=== PATIENT | female | born 1990 | race Caucasian/White ===

== ENCOUNTER 2020-04-16 10:13 | Outpatient (REF) | payer MEDICAID, SELFPAY | END 2020-04-16 10:14 | disposition home or self-care (01) | LOC: HO.LAB 10:13 | PROVIDERS: Visit Provider Internal Medicine | DX: Z20.822 Contact with and (suspected) exposure to COVID-19 (principal) | CPT/HCPCS: 36415; C9803; U0003 ==

== ENCOUNTER 2020-12-22 14:44 | Outpatient (REF) | payer MEDICAID, SELFPAY ==
[2020-12-23 02:48] LABS: CT PCR NOT DETECTED (Not Detect.); NG PCR NOT DETECTED (Not Detect.)
[2020-12-23 04:30] LABS: Syphilis Screen Nonreactive (Nonreactive)
[2020-12-23 04:37] LABS: HBsAGNum1 0.22 S/CO (0.00-0.99); HIV AB/AG Nonreactive (Nonreactive); HIV Num 1 0.08 S/CO (0.00-0.99); Hepatitis B Surface Antigen Negative (Negative); ~HepC Num1 0.18 S/CO (0.00-0.79); ~Hepatitis C Antibody Nonreactive (Nonreactive)
[2020-12-23 08:47] LABS: BV Int Neg Control Negative (Negative); BV Int Pos Control Positive (Positive)
[2020-12-27 17:06] LABS: HPV mRNA E6/E7 rflx Not Detected (Not Detected)
== END 2020-12-22 14:45 | disposition home or self-care (01) ==
LOC: HO.LAB 14:44
PROVIDERS: Visit Provider Obstetrics & Gynecology
DX: Z01.411 Encounter for gynecological examination (general) (routine) with abnormal findings (principal); Z11.51 Encounter for screening for human papillomavirus (HPV); Z11.3 Encounter for screening for infections with a predominantly sexual mode of transmission; Z11.4 Encounter for screening for human immunodeficiency virus [HIV]; N76.0 Acute vaginitis; B96.89 Other specified bacterial agents as the cause of diseases classified elsewhere
CPT/HCPCS: 36415; 86780; 86803; 87340; 87389; 87480; 87491; 87510; 87591; 87624; 87660; 88142

== ENCOUNTER 2021-03-01 08:19 | Outpatient (REF) | payer MEDICAID, SELFPAY ==
[2021-03-01 11:30] LABS: Syphilis Screen Nonreactive (Nonreactive)
[2021-03-01 11:32] LABS: ~HepC Num1 0.12 S/CO (0.00-0.79); ~Hepatitis C Antibody Nonreactive (Nonreactive)
[2021-03-01 11:35] LABS: HBc Num1 0.08 S/CO (0.00-0.79); HIV AB/AG Nonreactive (Nonreactive); HIV Num 1 0.06 S/CO (0.00-0.99); Hepatitis B Core Antibody Nonreactive (Nonreactive)
[2021-03-02 02:49] LABS: CT PCR NOT DETECTED (Not Detect.); NG PCR NOT DETECTED (Not Detect.)
[2021-03-02 10:15] LABS: BV Int Neg Control Negative (Negative); BV Int Pos Control Positive (Positive)
== END 2021-03-01 08:20 | disposition home or self-care (01) ==
LOC: HO.LAB 08:19
PROVIDERS: PCP Internal Medicine; Visit Provider Advanced Practice Midwife
DX: Z01.84 Encounter for antibody response examination (principal); Z11.4 Encounter for screening for human immunodeficiency virus [HIV]; F43.9 Reaction to severe stress, unspecified; Z20.2 Contact with and (suspected) exposure to infections with a predominantly sexual mode of transmission
CPT/HCPCS: 36415; 86704; 86780; 86803; 87389; 87480; 87491; 87510; 87591; 87660; 99212

== ENCOUNTER 2021-07-24 15:54 | Outpatient (REF) | payer MEDICAID, SELFPAY ==
[2021-07-25 05:11] LABS: ~Hepatitis B Surface Antibody REACTIVE (Nonreactive)
== END 2021-07-24 15:55 | disposition home or self-care (01) ==
LOC: HO.LNP 15:54
PROVIDERS: Visit Provider Internal Medicine
DX: Z02.1 Encounter for pre-employment examination (principal)
CPT/HCPCS: 86706

== ENCOUNTER 2021-12-26 14:43 | Outpatient (REF) | payer MEDICAID, SELFPAY ==
[2021-12-27 05:46] LABS: CT PCR NOT DETECTED (Not Detect.); NG PCR NOT DETECTED (Not Detect.)
[2021-12-27 10:15] LABS: BV Int Neg Control Negative (Negative); BV Int Pos Control Positive (Positive)
[2021-12-28 22:41] LABS: HPV mRNA E6/E7 rflx Not Detected (Not Detected)
== END 2021-12-26 14:44 | disposition home or self-care (01) ==
LOC: HO.LNP 14:43
PROVIDERS: Visit Provider Advanced Practice Midwife
DX: Z01.419 Encounter for gynecological examination (general) (routine) without abnormal findings (principal); Z11.3 Encounter for screening for infections with a predominantly sexual mode of transmission; Z11.51 Encounter for screening for human papillomavirus (HPV)
CPT/HCPCS: 87480; 87491; 87510; 87591; 87624; 87660; 88142

== ENCOUNTER 2022-11-05 15:21 | Outpatient (REF) | payer MEDICAID, SELFPAY ==
[2022-11-05 18:28] LABS: MANUAL DIFF FLAG NO
[2022-11-05 19:08] LABS: Basophils Absolute Auto 0.1 X10*3/uL (0.0-0.2); Basophils Percent Auto 0.8 % (0-2); Eosinophils Absolute Auto 0.2 X10*3/uL (0.0-0.4); Eosinophils Percent Auto 2.3 % (0-4); Hemoglobin 12.6 g/dl (12.0-16.0); Imm Gran Abs Auto 0.02 X10*3/uL (0.00-0.03); Imm Gran Pct Auto 0.3 % (0.0-0.4); Lymphocytes Absolute Auto 1.9 X10*3/uL (1.2-4.9); Mean Corpuscular HGB Conc 34.1 g/dl (31.0-35.0); Mean Corpuscular Hemoglobin 30.3 pg (27.0-33.0); Mean Corpuscular Volume 88.9 fL (80.0-98.0); Mean Platelet Volume 8.8 fL (9.4-12.3); Monocytes Absolute Auto 0.4 X10*3/uL (0.1-1.2); Monocytes Percent Auto 6.2 % (2-11); Neutrophils Absolute Auto 4.1 x10*3/uL (2.0-8.3); Neutrophils Percent Auto 61.4 % (45-73); Platelet Count 459 X10*3/uL (160-400); Red Blood Count 4.16 X10*6/uL (4.20-5.50); Red Cell Distribution Width 12.5 % (11.0-16.0); White Blood Count 6.7 X10*3/uL (4.8-10.8)
[2022-11-05 19:47] LABS: Monotest Negative (Negative)
== END 2022-11-05 15:22 | disposition home or self-care (01) ==
LOC: HO.CHCLDS 15:21
PROVIDERS: Visit Provider Internal Medicine
DX: J02.9 Acute pharyngitis, unspecified (principal)
CPT/HCPCS: 36415; 85025; 86308; 87070

== ENCOUNTER 2022-12-06 14:38 | Outpatient (REF) | payer MEDICAID, SELFPAY ==
[2022-12-06 17:18] LABS: MANUAL DIFF FLAG NO
[2022-12-06 17:20] LABS: Basophils Absolute Auto 0.1 X10*3/uL (0.0-0.2); Basophils Percent Auto 0.8 % (0-2); Eosinophils Absolute Auto 0.2 X10*3/uL (0.0-0.4); Eosinophils Percent Auto 1.9 % (0-4); Hematocrit 36.7 % (37.0-47.0); Hemoglobin 12.1 g/dl (12.0-16.0); Imm Gran Abs Auto 0.02 X10*3/uL (0.00-0.03); Imm Gran Pct Auto 0.2 % (0.0-0.4); Lymphocytes Percent Auto 24.2 % (20-40); Mean Corpuscular Hemoglobin 29.7 pg (27.0-33.0); Monocytes Absolute Auto 0.4 X10*3/uL (0.1-1.2); Monocytes Percent Auto 5.3 % (2-11); Neutrophils Absolute Auto 5.6 x10*3/uL (2.0-8.3); Neutrophils Percent Auto 67.6 % (45-73); Platelet Count 468 X10*3/uL (160-400); Red Blood Count 4.08 X10*6/uL (4.20-5.50); Red Cell Distribution Width 12.9 % (11.0-16.0); White Blood Count 8.3 X10*3/uL (4.8-10.8)
[2022-12-06 17:37] LABS: Alanine Aminotransferase 8 U/L (0-31); Albumin Level 4.1 g/dL (3.5-5.0); Alkaline Phosphatase 85 U/L (39-117); Anion Gap 8 (12-20); Aspartate Amino Transferase 12 U/L (5-31); Bilirubin Direct 0.1 mg/dL (0.0-0.5); Bilirubin Total 0.3 mg/dL (0.0-1.0); Blood Urea Nitrogen 11 mg/dL (9-16); Calcium 9.5 mg/dL (8.4-10.2); Carbon Dioxide 25 mmol/L (22-29); Chloride 110 mmol/L (96-108); Cholesterol 213 mg/dL (<200); Estimated Glomerular Filt Rate > 60; Glucose Random 78 mg/dL (60-115); HDL Cholesterol 54 mg/dL (>40); LDL Cholesterol Calculated 132 mg/dL (<100); Potassium 3.8 mmol/L (3.3-5.1); Sodium 139 mmol/L (135-145); Total Protein 7.2 g/dL (6.5-8.0); Triglycerides 135 mg/dL (<150)
[2022-12-06 17:53] LABS: TSH reflex Free T4 4.21 uIU/mL (0.32-4.0)
[2022-12-06 19:13] LABS: Free T4 (Free Thyroxine) 0.76 ng/dL (0.71-1.85)
[2022-12-07 05:02] LABS: ~HepC Num1 0.11 S/CO (0.00-0.79); ~Hepatitis C Antibody Nonreactive (Nonreactive)
== END 2022-12-06 14:39 | disposition home or self-care (01) ==
LOC: HO.CHCLDS 14:38
PROVIDERS: Visit Provider Internal Medicine
DX: E66.09 Other obesity due to excess calories (principal); Z68.33 Body mass index [BMI] 33.0-33.9, adult; G43.709 Chronic migraine without aura, not intractable, without status migrainosus
CPT/HCPCS: 36415; 80048; 80061; 80076; 84439; 84443; 85025; 86803

== ENCOUNTER 2022-12-19 14:48 | Outpatient (REF) | payer MEDICAID, SELFPAY ==
[2022-12-19 18:34] LABS: CT PCR NOT DETECTED (Not Detect.); NG PCR NOT DETECTED (Not Detect.)
[2022-12-20 14:30] LABS: BV Int Neg Control Negative (Negative); BV Int Pos Control Positive (Positive)
== END 2022-12-19 14:49 | disposition home or self-care (01) ==
LOC: HO.LNP 14:48
PROVIDERS: PCP Internal Medicine; Visit Provider Advanced Practice Midwife
DX: Z01.419 Encounter for gynecological examination (general) (routine) without abnormal findings (principal); Z87.42 Personal history of other diseases of the female genital tract; E66.9 Obesity, unspecified; Z97.5 Presence of (intrauterine) contraceptive device
CPT/HCPCS: 0353U; 87480; 87510; 87660; 99395

== ENCOUNTER 2022-12-19 14:48 | Outpatient (AMB) | payer MEDICAID, SELFPAY ==
[2022-12-19 15:01] VITALS: BP 132/74; BMI 34.2
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
== END 2022-12-19 16:03 | disposition home or self-care (01) ==
LOC: HO.HWSM 14:48
PROVIDERS: PCP Internal Medicine; Visit Provider Advanced Practice Midwife
DX: Z11.3 Encounter for screening for infections with a predominantly sexual mode of transmission (principal); Z12.4 Encounter for screening for malignant neoplasm of cervix; Z87.42 Personal history of other diseases of the female genital tract; Z97.5 Presence of (intrauterine) contraceptive device; Z01.419 Encounter for gynecological examination (general) (routine) without abnormal findings; E66.9 Obesity, unspecified
CPT/HCPCS: 99395

== ENCOUNTER 2024-09-10 11:23 | Outpatient (REF) | payer MEDICAID, SELFPAY ==
--- OUTSIDE RECORDS SUMMARY | 2024-09-10 13:30 | XMS_ITS | Encounter Summary ---
Author Organization [employer] Address [address] [place] [address] Care Team Providers Care Director Money Name Role Phone Gerard Marcelo MD Primary Care Provider Reason for Visit * Reason Onset Date Comments appt 11/04/2023 Encounter Details Date Type Department Care Team ([facility] Contact Info) Description 11/04/2023 Telephone [facility] [address] [place] [address] Carlos Manuel, Hasmukh, DMD [address], [place] [id number] appt Social History Tobacco Use Types Packs/Day Years Used Date Smoking Tobacco: Never Passive Smoke Exposure: Never Smokeless Tobacco: Never Depression Answer Date Recorded Patient Health Questionnaire-9 Score 0 12/06/2022 Depression Answer Date Recorded Patient Health Questionnaire-2 Score 0 12/06/2022 Comments Unknown Sex and Gender Information Value Date Recorded Sex Assigned at Female 01/29/2022 10:16 AM EDT Legal Sex Female 10:16 AM EDT Gender Identity Female 01/29/2022 10:16 AM EDT Sexual Orientation Choose not to disclose 2021 10:16 AM EDT documented as of this encounter Miscellaneous Notes * Telephone Encounter - Rosette Chapman - 11/04/2023 2:22 PM EDT Patient checking status of appt. They were seeing Dr. Tran but are ok with continuing in [facility] provider. Active requested since 05/2023. documented in this encounter Plan of Treatment Upcoming Encounters Date Type Department Care Team ([facility] Contact Info) Description 09/28/2024 8:00 AM EDT Office Visit [facility] ADULT DENTAL [address] [place] [address] Kimberly Montano 11/23/2024 2:15 PM EDT Office Visit [facility] MED [facility] PED[facility] [address] [place] [address] Gerard Marcelo MD [address] [place] [address] documented as of this encounter Visit Diagnoses Not on filedocumented in this encounter Additional Health Concerns Assessment Noted Time PHQ-9 Depression Total Score: 0 12/07/19 23 2:15 PM EDT documented as of this encounter Care Teams Director Money Relationship Specialty Start Date End Date Gerard Marcelo MD [address] [place] [address] PCP - General Internal Medicine 04/30/13 documented as of this encounter
[2024-09-10 14:12] LABS: MANUAL DIFF FLAG NO
[2024-09-10 14:16] LABS: Basophils Absolute Auto 0.1 X10*3/uL (0.0-0.2); Basophils Percent Auto 0.7 % (0-2); Eosinophils Absolute Auto 0.2 X10*3/uL (0.0-0.4); Eosinophils Percent Auto 2.9 % (0-4); Hematocrit 35.6 % (37.0-47.0); Hemoglobin 12.2 g/dl (12.0-16.0); Imm Gran Abs Auto 0.02 X10*3/uL (0.00-0.03); Imm Gran Pct Auto 0.3 % (0.0-0.4); Lymphocytes Absolute Auto 1.8 X10*3/uL (1.2-4.9); Lymphocytes Percent Auto 23.5 % (20-40); Mean Corpuscular HGB Conc 34.3 g/dl (31.0-35.0); Mean Corpuscular Hemoglobin 30.7 pg (27.0-33.0); Mean Corpuscular Volume 89.4 fL (80.0-98.0); Mean Platelet Volume 8.9 fL (9.4-12.3); Monocytes Absolute Auto 0.5 X10*3/uL (0.1-1.2); Monocytes Percent Auto 6.9 % (2-11); Neutrophils Percent Auto 65.7 % (45-73); Platelet Count 428 X10*3/uL (160-400); Red Blood Count 3.98 X10*6/uL (4.20-5.50); Red Cell Distribution Width 12.7 % (11.0-16.0); White Blood Count 7.6 X10*3/uL (4.8-10.8)
[2024-09-10 14:36] LABS: Alanine Aminotransferase 28 U/L (0-31); Albumin Level 4.1 g/dL (3.5-5.0); Alkaline Phosphatase 84 U/L (39-117); Anion Gap 9 (12-20); Aspartate Amino Transferase 33 U/L (5-31); Bilirubin Total 0.4 mg/dL (0.0-1.0); Blood Urea Nitrogen 9 mg/dL (9-16); Calcium 9.1 mg/dL (8.4-10.2); Carbon Dioxide 25 mmol/L (22-29); Chloride 109 mmol/L (96-108); Cholesterol 226 mg/dL (<200); Estimated Glomerular Filt Rate > 60; Glucose Random 92 mg/dL (60-115); HDL Cholesterol 55 mg/dL (>40); LDL Cholesterol Calculated 139 mg/dL (<100); Potassium 4.2 mmol/L (3.3-5.1); Sodium 139 mmol/L (135-145); Total Protein 7.1 g/dL (6.5-8.0); Triglycerides 160 mg/dL (<150)
[2024-09-10 14:54] LABS: TSH reflex Free T4 8.91 uIU/mL (0.32-4.0)
[2024-09-10 15:29] LABS: Free T4 (Free Thyroxine) 0.75 ng/dL (0.71-1.85)
== END 2024-09-10 11:24 | disposition home or self-care (01) ==
LOC: HO.CHCLDS 11:23
PROVIDERS: Visit Provider Internal Medicine
DX: Z00.00 Encounter for general adult medical examination without abnormal findings (principal)
CPT/HCPCS: 36415; 80053; 80061; 84439; 84443; 85025

== ENCOUNTER 2024-11-23 16:01 | Outpatient (REF) | payer MEDICAID, SELFPAY ==
--- OUTSIDE RECORDS SUMMARY | 2024-11-23 14:15 | XMS_ITS | Encounter Summary ---
Author Organization [employer] Address [address] [place] [address] Care Team Providers Care Cad Design Engineer Name Role Phone Gerard Marcelo MD Primary Care Provider Encounter Details Date Type Department Care Team (Latest Contact Info) Description 11/23/2024 2:15 PM EDT Office Visit [facility] [address], [place] [phone] Gerard Marcelo MD [address] [place], [place] [phone] Hypercholesterolemia (Primary Dx); Class 1 obesity due to excess calories without serious comorbidity with body mass index (BMI) of 33.0 to 33.9 in adult; Current severe episode of major depressive disorder without psychotic features without prior episode (CMS/HCC); Elevated blood pressure reading Social History Tobacco Use Types Packs/Day Years Used Date Smoking Tobacco: Never Passive Smoke Exposure: Never Smokeless Tobacco: Never Alcohol Use Standard Drinks/Week Comments Defer 0 (1 standard drink = 0.6 oz pur e alcohol) Depression Answer Date Recorded Patient Health Questionnaire-9 Score 7 09/10/2024 Patient Health Questionnaire-9 Score 7 09/10/2024 Last PHQ-9: Questionnaire Data Not on file 0 09/10/2024 Housing Stability Answer Date Recorded What is your housing situation today? I have dylan bhandari 05/27/[address] you li ve. Do you have problems with any of the following? None of the above 05/27/2024 Food Insecurity Answer Date Recorded Within the past 12 months, y ou worried that your food would run out before you got money to buy more: Never True 05/27/2024 Within the past 12 months,th e food you bought just didn't last and you didn't have enough money to get more: Never True Transportation Answer Date Recorded In the past 12 months, has l ack of transportation kept you from medical appts, meetings, work or from getting things needed for daily living? No 05/27/2024 Utilities Answer Date Recorded In the past 12 months, has t he electric, gas, oil or water company threatened to shut off services in your home? No 09/01/2024 Depression Answer Date Recorded Patient Health Questionnaire-2 Score 3 09/10/2024 Internet Access Answer Date Recorded Internet Access Q1 Yes 09/01/2024 Internet Access Q2 Not on file 09/01/2024 Comments Unknown Sex and Gender Information Value Date Recorded Sex Assigned at Female 01/29/2022 10:16 AM EDT Legal Sex Female 10:16 AM EDT Gender Identity Female 01/29/2022 10:16 AM EDT Sexual Orientation Choose not to disclose 2021 10:16 AM EDT documented as of this encounter Last Filed Vital Signs Vital Sign Reading Time Taken Comments Blood Pressure 146/96 11/23/2024 2:46 PM EDT Pulse 96 11/23/2024 2:46 PM EDT Temperature 36.8 C (98.3 F) 11/23/2024 2:46 PM EDT Respiratory Rate 20 11/23/2024 2:46 PM EDT Oxygen Saturation 98% 11/23/2024 2:46 PM EDT Inhaled Oxygen Concentration - - Weight 87.1 kg (192 lb) 11/23/2024 2:46 PM EDT Height 165.1 cm (5' 5 ) 11/23/2024 2:46 PM EDT Body Mass Index 31.95 11/23/2024 2:46 PM EDT documented in this encounter Progress Notes * Gerard Marcelo MD - 11/23/2024 2:15 PM EDT BLANCA Redd is a 33 y.o. female who presents for No chief complaint on file.. HPI History of obesity. Started on phentermine topiramate on September 10, 2024. Initial weight was 203 pound. Today patient's weight is 192 pound which represents 11 pound weight loss in the last 3 months. Otherwise pt feels well. Denies any untoward side effect from the medication. Mrs. Amelia Redd is here also to discuss the results of her most recent blood work. Problem List[1] Allergies[2] Medications Ordered Prior to Encounter[3] Review of Systems Constitutional: Negative for activity change, appetite change, chills and diaphoresis. HENT: Negative for dental problem, drooling, ear discharge, ear pain and hearing loss. Eyes: Negative for pain, discharge and itching. Respiratory: Negative for cough, choking and chest tightness. Cardiovascular: Negative for chest pain and leg swelling. Gastrointestinal: Negative for blood in stool and diarrhea. Genitourinary: Negative for difficulty urinating, dyspareunia, dysuria, enuresis, flank pain, frequency and genital sores. Musculoskeletal: Negative for arthralgias, gait problem and joint swelling. Skin: Negative for pallor. Neurological: Negative for dizziness, seizures, speech difficulty, light- headedness and numbness. Psychiatric/Behavioral: Negative for behavioral problems, confusion and decreased concentration. OBJECTIVE Vitals: 11/23/24 1446 BP: (!) 146/96 Pulse: 96 Resp: 20 Temp: 98.3 ??F (36.8 ??C) TempSrc: Oral SpO2: 98% Weight: 192 lb (87.1 kg) Height: 5' 5 (1.651 m) Physical Exam Constitutional: General: She is not in acute distress. Appearance: Normal appearance. She is not ill-appearing, toxic-appearing or diaphoretic. Cardiovascular: Rate and Rhythm: Normal rate. Abdominal: General: There is no distension. Palpations: Abdomen is soft. There is no mass. Tenderness: There is no abdominal tenderness. Hernia: No hernia is present. Musculoskeletal: General: Normal range of motion. Neurological: General: No focal deficit present. Mental Status: She is alert. Psychiatric: Mood and Affect: Mood normal. Assessment/Plan Assessment/Plan Diagnoses and all orders for this visit: Hypercholesterolemia Comments: Low-cholesterol diet A handout was provided. Class 1 obesity due to excess calories without serious comorbidity with body mass index (BMI) of 33.0 to 33.9 in adult Dietary Recommendations: Fruits, vegetables, whole grains, protein foods, and fat-free or low-fat dairy products are healthychoices. Eat different types of protein foods in your diet. This can include seafood, lean meats, poultry, beans, peas, lentils, nuts, seeds, soy products, and eggs. Limit foods and beverages higher in added sugars, saturated fat, and sodium. Exercise Recommendations: At least 150 minutes of moderate-intensity physical activity per week, or an equivalent combinationof moderate- and vigorous-intensity activity Current severe episode of major depressive disorder without psychotic features without prior episode (CMS/HCC) Comments: Has missed 2 appointment with behavioral because of scheduling issues. Advised to call to reschedule. Elevated blood pressure reading Comments: DASH diet Dose of phentermine will be decreased to 8 mg once a day. Mrs. Amelia Redd will contact the office in 4 days to report her blood pressure readings from home. Labs reviewed. Patient has elevated TSH. A workup was already ordered to confirm her level and antibodies also ordered. She is going to do them today. Also noted to have mild elevation of her AST. Will repeat lipid panel was also ordered to be done today. [1] Patient Active Problem List Diagnosis Migraine Obesity Current severe episode of major depressive disorder without psychotic features without prior episode (CMS/HCC) JUAN C (generalized anxiety disorder) [2] Allergies Allergen Reactions Amoxicillin Rash [3] Current Outpatient Medications on File Prior to Visit Medication Sig Dispense Refill juhpcqm-pfhfhbmnuggon-zprwrhrh (Excedrin Migraine) 250-250-65 MG tablet Take 1 tablet by mouth every 6 (six) hours if needed for headaches. methocarbamol (Robaxin) 750 MG tablet Take 1 tablet (750 mg) by mouth 4 times daily for 10 days. 40tablet 0 phentermine 15 MG capsule TAKE ONE CAPSULE EVERY MORNING BEFORE BREAKFAST 30 capsule 0 propranolol XL (Innopran XL) 80 MG 24 hr capsule Take 1 capsule by mouth at bed time. (Patient not taking: Reported on 05/19/2024) Sodium Fluoride 1.1 % cream [place] teeth for 2 minutes, morning and night. Spit, do not rinse. Do not eat or drink anything for 30 minutes following use. 112 g 3 SUMAtriptan (Imitrex) 100 MG tablet Take 1 tablet by mouth. (Patient not taking: Reported on 05/19/2024) topiramate (Topamax) 25 MG tablet Take 1 tablet (25 mg) by mouth every 12 (twelve) hours. 60 [id number] triamcinolone (Kenalog) 0.1 % ointment Apply topically 2 times daily. 15 g 0 No current facility-administered medications on file prior to visit. documented in this encounter Miscellaneous Notes * Patient Education Note - Gerard Marcelo MD - 11/23/2024 7:07 PM EDT Images from the original note were not included. Patient Education Table of Contents High Cholesterol Dyslipidemia To view videos and all your education online visit, [email or web address] or scan this QR code with your smartphone. Access to this content will in one year. High Cholesterol High cholesterol is a condition in which the blood has high levels of a white, waxy substance similar to fat (cholesterol). The liver makes all the cholesterol that the body needs. The human body needs small amounts of cholesterol to help build cells. A person gets extra or excess cholesterol from the food that he or she eats. The blood carries cholesterol from the liver to the rest of the body. If you have high cholesterol,deposits (plaques) may build up on the christensen of your arteries. Arteries are the blood vessels that carry blood away from your heart. These plaques make the arteries narrow and stiff. Cholesterol plaques increase your risk for heart attack and stroke. Work with your health care provider to keep your cholesterol levels in a healthy range. What increases the risk? The following factors may make you more likely to develop this condition: Eating foods that are high in animal fat (saturated fat) or cholesterol. Being overweight. Not getting enough exercise. A family history of high cholesterol (familial hypercholesterolemia). Use of tobacco products. Having diabetes. What are the signs or symptoms? In most cases, high cholesterol does not usually cause any symptoms. In severe cases, very high cholesterol levels can cause: Fatty bumps under the skin (xanthomas). A white or gordon ring around the black center (pupil) of the eye. How is this diagnosed? This condition may be diagnosed based on the results of a blood test. If you are older than 20 years of age, your health care provider may check your cholesterol levels every 4?6 years. You may be checked more often if you have high cholesterol or other risk factors for heart disease. The blood test for cholesterol measures: Bad cholesterol, or LDL cholesterol. This is the main type of cholesterol that causes heart disease. The desired level is less than 100 mg/dL (2.59 mmol/L). Good cholesterol, or HDL cholesterol. HDL helps protect against heart disease by cleaning the arteries and carrying the LDL to the liver for processing. The desired level for HDL is 60 mg/dL (1.55 mmol/L) or higher. Triglycerides. These are fats that your body can store or burn for energy. The desired level is less than 150 mg/dL (1.69 mmol/L). Total cholesterol. This measures the total amount of cholesterol in your blood and includes LDL, HDL, and triglycerides. The desired level is less than 200 mg/dL (5.17 mmol/L). How is this treated? Treatment for high cholesterol starts with lifestyle changes, such as diet and exercise. Diet changes. You may be asked to eat foods that have more fiber and less saturated fats or added sugar. Lifestyle changes. These may include regular exercise, maintaining a healthy weight, and quitting use of tobacco products. Medicines. These are given when diet and lifestyle changes have not worked. You may be prescribed astatin medicine to help lower your cholesterol levels. Follow these instructions at home: Eating and drinking Eat a healthy, balanced diet. This diet includes: ? Daily servings of a variety of fresh, frozen, or canned fruits and vegetables. ? Daily servings of whole grain foods that are rich in fiber. ? Foods that are low in saturated fats and trans fats. These include poultry and fish without skin,lean cuts of meat, and low-fat dairy products. ? A variety of fish, especially oily fish that contain omega-3 fatty acids. Aim to eat fish at least 2 times a week. Avoid foods and drinks that have added sugar. Use healthy cooking methods, such as roasting, grilling, broiling, baking, poaching, steaming, and stir-frying. Do not baez your food except for stir-frying. If you drink alcohol: ? Limit how much you have to: ? 0?1 drink a day for women who are not . ? 0?2 drinks a day for men. ? Know how much alcohol is in a drink. In the [place] one drink equals one 12 oz bottle of beer (355 mL), one 5 oz glass of wine (148 mL), or one 1? oz glass of hard liquor (44 mL). Lifestyle Get regular exercise. Aim to exercise for a total of 150 minutes a week. Increase your activity level by doing activities such as gardening, walking, and taking the stairs. Do not use any products that contain nicotine or tobacco. These products include cigarettes, chewing tobacco, and vaping devices, such as e-cigarettes. If you need help quitting, ask your health careprovider. General instructions Take qiec-pso-fravemy and prescription medicines only as told by your health care provider. Keep all follow-up visits. This is important. Where to find more information [place] [employer]: www.heart.org National Heart, Lung, and Blood [place]: www.nhlbi.nih.gov Contact a health care provider if: You have trouble achieving or maintaining a healthy diet or weight. You are starting an exercise program. You are unable to stop smoking. Get help right away if: You have chest pain. You have trouble breathing. You have discomfort or pain in your jaw, neck, back, shoulder, or arm. You have any symptoms of a stroke. BE FAST is an easy way to remember the main warning signs of astroke: ? B - Balance. Signs are dizziness, sudden trouble walking, or loss of balance. ? E - Eyes. Signs are trouble seeing or a sudden change in vision. ? F - Face. Signs are sudden weakness or numbness of the face, or the face or eyelid drooping on one side. ? A - Arms. Signs are weakness or numbness in an arm. This happens suddenly and usually on one sideof the body. ? S - Speech. Signs are sudden trouble speaking, slurred speech, or trouble understanding what people say. ? T - Time. Time to call emergency services. Write down what time symptoms started. You have other signs of a stroke, such as: ? A sudden, severe headache with no known cause. ? Nausea or vomiting. ? Seizure. These symptoms may represent a serious problem that is an emergency. Do not wait to see if the symptoms will go away. Get medical help right away. Call your local emergency services (911 in the [place] Do not drive yourself to the hospital. Summary Cholesterol plaques increase your risk for heart attack and stroke. Work with your health care provider to keep your cholesterol levels in a healthy range. Eat a healthy, balanced diet, get regular exercise, and maintain a healthy weight. Do not use any products that contain nicotine or tobacco. These products include cigarettes, chewing tobacco, and vaping devices, such as e-cigarettes. Get help right away if you have any symptoms of a stroke. This information is not intended to replace advice given to you by your health care provider. Make sure you discuss any questions you have with your health care provider. Document Released: 2006-03-18 Document Updated: 2022-10-19 Document Reviewed: 2021-05-22 [employer] Patient Education ? 2024 [employer] Dyslipidemia Dyslipidemia is an imbalance of waxy, fat-like substances (lipids) in the blood. The body needs lipids in small amounts. Dyslipidemia often involves a high level of cholesterol or triglycerides, which are types of lipids. Common forms of dyslipidemia include: High levels of LDL cholesterol. LDL is the type of cholesterol that causes fatty deposits (plaques)to build up in the blood vessels that carry blood away from the heart (arteries). Low levels of HDL cholesterol. HDL cholesterol is the type of cholesterol that protects against heart disease. High levels of HDL remove the LDL buildup from arteries. High levels of triglycerides. Triglycerides are a fatty substance in the blood that is linked to a buildup of plaques in the arteries. What are the causes? There are two main types of dyslipidemia: primary and secondary. Primary dyslipidemia is caused by changes (mutations) in genes that are passed down through families (inherited). These mutations cause several types of dyslipidemia. Secondary dyslipidemia may be caused by various risk factors that can lead to the disease, such as lifestyle choices and certain medical conditions. What increases the risk? You are more likely to develop this condition if you are an older man or if you are a woman who hasgone through menopause. Other risk factors include: Having a family history of dyslipidemia. Taking certain medicines, including control pills, steroids, some diuretics, and beta-blockers. Eating a diet high in saturated fat. Smoking cigarettes or excessive alcohol intake. Having certain medical conditions such as diabetes, polycystic ovary syndrome (PCOS), kidney disease, liver disease, or hypothyroidism. Not exercising regularly. Being overweight or obese with too much belly fat. What are the signs or symptoms? In most cases, dyslipidemia does not usually cause any symptoms. In severe cases, very high lipid levels can cause: Fatty bumps under the skin (xanthomas). A white or gordon ring around the black center (pupil) of the eye. Very high triglyceride levels can cause inflammation of the pancreas (pancreatitis). How is this diagnosed? Your health care provider may diagnose dyslipidemia based on a routine blood test (fasting blood test). Because most people do not have symptoms of the condition, this blood testing (lipid profile) is done on adults age 20 and older and is repeated every 4-6 years. This test checks: Total cholesterol. This measures the total amount of cholesterol in your blood, including LDL cholesterol, HDL cholesterol, and triglycerides. A healthy number is below 200 mg/dL (5.17 mmol/L). LDL cholesterol. The target number for LDL cholesterol is different for each person, depending on individual risk factors. A healthy number is usually below 100 mg/dL (2.59 mmol/L). Ask your health care provider what your LDL cholesterol should be. HDL cholesterol. An HDL level of 60 mg/dL (1.55 mmol/L) or higher is best because it helps to protect against heart disease. A number below 40 mg/dL (1.03 mmol/L) for men or below 50 mg/dL (1.29 mmol/L) for women increases the risk for heart disease. Triglycerides. A healthy triglyceride number is below 150 mg/dL (1.69 mmol/L). If your lipid profile is abnormal, your health care provider may do other blood tests. How is this treated? Treatment depends on the type of dyslipidemia that you have and your other risk factors for heart disease and stroke. Your health care provider will have a target range for your lipid levels based onthis information. Treatment for dyslipidemia starts with lifestyle changes, such as diet and exercise. Your health care provider may recommend that you: Get regular exercise. Make changes to your diet. Quit smoking if you smoke. Limit your alcohol intake. If diet changes and exercise do not help you reach your goals, your health care provider may also prescribe medicine to lower lipids. The most commonly prescribed type of medicine lowers your LDL cholesterol (statin drug). If you have a high triglyceride level, your provider may prescribe another type of drug (fibrate) or an omega-3 fish oil supplement, or both. Follow these instructions at home: Eating and drinking Follow instructions from your health care provider or dietitian about eating or drinking restrictions. Eat a healthy diet as told by your health care provider. This can help you reach and maintain a healthy weight, lower your LDL cholesterol, and raise your HDL cholesterol. This may include: ? Limiting your calories, if you are overweight. ? Eating more fruits, vegetables, whole grains, fish, and lean meats. ? Limiting saturated fat, trans fat, and cholesterol. Do not drink alcohol if: ? Your health care provider tells you not to drink. ? You are , may be , or are planning to become . If you drink alcohol: ? Limit how much you have to: ? 0?1 drink a day for women. ? 0?2 drinks a day for men. ? Know how much alcohol is in your drink. In the [place] one drink equals one 12 oz bottle of beer (355 mL), one 5 oz glass of wine (148 mL), or one 1? oz glass of hard liquor (44 mL). Activity Get regular exercise. Start an exercise and strength training program as told by your health care provider. Ask your health care provider what activities are safe for you. Your health care provider may recommend: ? 30 minutes of aerobic activity 4?6 days a week. Brisk walking is an example of aerobic activity. ? Strength training 2 days a week. General instructions Do not use any products that contain nicotine or tobacco. These products include cigarettes, chewing tobacco, and vaping devices, such as e-cigarettes. If you need help quitting, ask your health careprovider. Take mzyg-lal-hpnncfg and prescription medicines only as told by your health care provider. This includes supplements. Keep all follow-up visits. This is important. Contact a health care provider if: You are having trouble sticking to your exercise or diet plan. You are struggling to quit smoking or to control your use of alcohol. Summary Dyslipidemia often involves a high level of cholesterol or triglycerides, which are types of lipids. Treatment depends on the type of dyslipidemia that you have and your other risk factors for heart disease and stroke. Treatment for dyslipidemia starts with lifestyle changes, such as diet and exercise. Your health care provider may prescribe medicine to lower lipids. This information is not intended to replace advice given to you by your health care provider. Make sure you discuss any questions you have with your health care provider. Document Released: 2014-03-23 Document Updated: 2022-10-19 Document Reviewed: 2021-05-22 [employer] Patient Education ? 2024 [employer]. * Patient Education Note - Gerard Marcelo MD - 11/23/2024 7:07 PM EDT Images from the original note were not included. Patient Education Table of Contents High Cholesterol To view videos and all your education online visit, [email or web address] or scan this QR code with your smartphone. Access to this content will in one year. High Cholesterol High cholesterol is a condition in which the blood has high levels of a white, waxy substance similar to fat (cholesterol). The liver makes all the cholesterol that the body needs. The human body needs small amounts of cholesterol to help build cells. A person gets extra or excess cholesterol from the food that he or she eats. The blood carries cholesterol from the liver to the rest of the body. If you have high cholesterol,deposits (plaques) may build up on the christensen of your arteries. Arteries are the blood vessels that carry blood away from your heart. These plaques make the arteries narrow and stiff. Cholesterol plaques increase your risk for heart attack and stroke. Work with your health care provider to keep your cholesterol levels in a healthy range. What increases the risk? The following factors may make you more likely to develop this condition: Eating foods that are high in animal fat (saturated fat) or cholesterol. Being overweight. Not getting enough exercise. A family history of high cholesterol (familial hypercholesterolemia). Use of tobacco products. Having diabetes. What are the signs or symptoms? In most cases, high cholesterol does not usually cause any symptoms. In severe cases, very high cholesterol levels can cause: Fatty bumps under the skin (xanthomas). A white or gordon ring around the black center (pupil) of the eye. How is this diagnosed? This condition may be diagnosed based on the results of a blood test. If you are older than 20 years of age, your health care provider may check your cholesterol levels every 4?6 years. You may be checked more often if you have high cholesterol or other risk factors for heart disease. The blood test for cholesterol measures: Bad cholesterol, or LDL cholesterol. This is the main type of cholesterol that causes heart disease. The desired level is less than 100 mg/dL (2.59 mmol/L). Good cholesterol, or HDL cholesterol. HDL helps protect against heart disease by cleaning the arteries and carrying the LDL to the liver for processing. The desired level for HDL is 60 mg/dL (1.55 mmol/L) or higher. Triglycerides. These are fats that your body can store or burn for energy. The desired level is less than 150 mg/dL (1.69 mmol/L). Total cholesterol. This measures the total amount of cholesterol in your blood and includes LDL, HDL, and triglycerides. The desired level is less than 200 mg/dL (5.17 mmol/L). How is this treated? Treatment for high cholesterol starts with lifestyle changes, such as diet and exercise. Diet changes. You may be asked to eat foods that have more fiber and less saturated fats or added sugar. Lifestyle changes. These may include regular exercise, maintaining a healthy weight, and quitting use of tobacco products. Medicines. These are given when diet and lifestyle changes have not worked. You may be prescribed astatin medicine to help lower your cholesterol levels. Follow these instructions at home: Eating and drinking Eat a healthy, balanced diet. This diet includes: ? Daily servings of a variety of fresh, frozen, or canned fruits and vegetables. ? Daily servings of whole grain foods that are rich in fiber. ? Foods that are low in saturated fats and trans fats. These include poultry and fish without skin,lean cuts of meat, and low-fat dairy products. ? A variety of fish, especially oily fish that contain omega-3 fatty acids. Aim to eat fish at least 2 times a week. Avoid foods and drinks that have added sugar. Use healthy cooking methods, such as roasting, grilling, broiling, baking, poaching, steaming, and stir-frying. Do not baez your food except for stir-frying. If you drink alcohol: ? Limit how much you have to: ? 0?1 drink a day for women who are not . ? 0?2 drinks a day for men. ? Know how much alcohol is in a drink. In the [place] one drink equals one 12 oz bottle of beer (355 mL), one 5 oz glass of wine (148 mL), or one 1? oz glass of hard liquor (44 mL). Lifestyle Get regular exercise. Aim to exercise for a total of 150 minutes a week. Increase your activity level by doing activities such as gardening, walking, and taking the stairs. Do not use any products that contain nicotine or tobacco. These products include cigarettes, chewing tobacco, and vaping devices, such as e-cigarettes. If you need help quitting, ask your health careprovider. General instructions Take puxv-rxe-bleqdvw and prescription medicines only as told by your health care provider. Keep all follow-up visits. This is important. Where to find more information [place] [employer]: www.heart.org National Heart, Lung, and Blood [place]: www.nhlbi.nih.gov Contact a health care provider if: You have trouble achieving or maintaining a healthy diet or weight. You are starting an exercise program. You are unable to stop smoking. Get help right away if: You have chest pain. You have trouble breathing. You have discomfort or pain in your jaw, neck, back, shoulder, or arm. You have any symptoms of a stroke. BE FAST is an easy way to remember the main warning signs of astroke: ? B - Balance. Signs are dizziness, sudden trouble walking, or loss of balance. ? E - Eyes. Signs are trouble seeing or a sudden change in vision. ? F - Face. Signs are sudden weakness or numbness of the face, or the face or eyelid drooping on one side. ? A - Arms. Signs are weakness or numbness in an arm. This happens suddenly and usually on one sideof the body. ? S - Speech. Signs are sudden trouble speaking, slurred speech, or trouble understanding what people say. ? T - Time. Time to call emergency services. Write down what time symptoms started. You have other signs of a stroke, such as: ? A sudden, severe headache with no known cause. ? Nausea or vomiting. ? Seizure. These symptoms may represent a serious problem that is an emergency. Do not wait to see if the symptoms will go away. Get medical help right away. Call your local emergency services (911 in the [place] Do not drive yourself to the hospital. Summary Cholesterol plaques increase your risk for heart attack and stroke. Work with your health care provider to keep your cholesterol levels in a healthy range. Eat a healthy, balanced diet, get regular exercise, and maintain a healthy weight. Do not use any products that contain nicotine or tobacco. These products include cigarettes, chewing tobacco, and vaping devices, such as e-cigarettes. Get help right away if you have any symptoms of a stroke. This information is not intended to replace advice given to you by your health care provider. Make sure you discuss any questions you have with your health care provider. Document Released: 2006-03-18 Document Updated: 2022-10-19 Document Reviewed: 2021-05-22 [employer] Patient Education ? 2024 [employer]. * Patient Education Note - Gerard Marcelo MD - 11/23/2024 7:06 PM EDT Images from the original note were not included. Patient Education Table of Contents High Cholesterol Dyslipidemia To view videos and all your education online visit, [email or web address] or scan this QR code with your smartphone. Access to this content will in one year. High Cholesterol High cholesterol is a condition in which the blood has high levels of a white, waxy substance similar to fat (cholesterol). The liver makes all the cholesterol that the body needs. The human body needs small amounts of cholesterol to help build cells. A person gets extra or excess cholesterol from the food that he or she eats. The blood carries cholesterol from the liver to the rest of the body. If you have high cholesterol,deposits (plaques) may build up on the christensen of your arteries. Arteries are the blood vessels that carry blood away from your heart. These plaques make the arteries narrow and stiff. Cholesterol plaques increase your risk for heart attack and stroke. Work with your health care provider to keep your cholesterol levels in a healthy range. What increases the risk? The following factors may make you more likely to develop this condition: Eating foods that are high in animal fat (saturated fat) or cholesterol. Being overweight. Not getting enough exercise. A family history of high cholesterol (familial hypercholesterolemia). Use of tobacco products. Having diabetes. What are the signs or symptoms? In most cases, high cholesterol does not usually cause any symptoms. In severe cases, very high cholesterol levels can cause: Fatty bumps under the skin (xanthomas). A white or gordon ring around the black center (pupil) of the eye. How is this diagnosed? This condition may be diagnosed based on the results of a blood test. If you are older than 20 years of age, your health care provider may check your cholesterol levels every 4?6 years. You may be checked more often if you have high cholesterol or other risk factors for heart disease. The blood test for cholesterol measures: Bad cholesterol, or LDL cholesterol. This is the main type of cholesterol that causes heart disease. The desired level is less than 100 mg/dL (2.59 mmol/L). Good cholesterol, or HDL cholesterol. HDL helps protect against heart disease by cleaning the arteries and carrying the LDL to the liver for processing. The desired level for HDL is 60 mg/dL (1.55 mmol/L) or higher. Triglycerides. These are fats that your body can store or burn for energy. The desired level is less than 150 mg/dL (1.69 mmol/L). Total cholesterol. This measures the total amount of cholesterol in your blood and includes LDL, HDL, and triglycerides. The desired level is less than 200 mg/dL (5.17 mmol/L). How is this treated? Treatment for high cholesterol starts with lifestyle changes, such as diet and exercise. Diet changes. You may be asked to eat foods that have more fiber and less saturated fats or added sugar. Lifestyle changes. These may include regular exercise, maintaining a healthy weight, and quitting use of tobacco products. Medicines. These are given when diet and lifestyle changes have not worked. You may be prescribed astatin medicine to help lower your cholesterol levels. Follow these instructions at home: Eating and drinking Eat a healthy, balanced diet. This diet includes: ? Daily servings of a variety of fresh, frozen, or canned fruits and vegetables. ? Daily servings of whole grain foods that are rich in fiber. ? Foods that are low in saturated fats and trans fats. These include poultry and fish without skin,lean cuts of meat, and low-fat dairy products. ? A variety of fish, especially oily fish that contain omega-3 fatty acids. Aim to eat fish at least 2 times a week. Avoid foods and drinks that have added sugar. Use healthy cooking methods, such as roasting, grilling, broiling, baking, poaching, steaming, and stir-frying. Do not baez your food except for stir-frying. If you drink alcohol: ? Limit how much you have to: ? 0?1 drink a day for women who are not . ? 0?2 drinks a day for men. ? Know how much alcohol is in a drink. In the [place] one drink equals one 12 oz bottle of beer (355 mL), one 5 oz glass of wine (148 mL), or one 1? oz glass of hard liquor (44 mL). Lifestyle Get regular exercise. Aim to exercise for a total of 150 minutes a week. Increase your activity level by doing activities such as gardening, walking, and taking the stairs. Do not use any products that contain nicotine or tobacco. These products include cigarettes, chewing tobacco, and vaping devices, such as e-cigarettes. If you need help quitting, ask your health careprovider. General instructions Take hvxz-nep-drakveu and prescription medicines only as told by your health care provider. Keep all follow-up visits. This is important. Where to find more information [place] [employer]: www.heart.org National Heart, Lung, and Blood [place]: www.nhlbi.nih.gov Contact a health care provider if: You have trouble achieving or maintaining a healthy diet or weight. You are starting an exercise program. You are unable to stop smoking. Get help right away if: You have chest pain. You have trouble breathing. You have discomfort or pain in your jaw, neck, back, shoulder, or arm. You have any symptoms of a stroke. BE FAST is an easy way to remember the main warning signs of astroke: ? B - Balance. Signs are dizziness, sudden trouble walking, or loss of balance. ? E - Eyes. Signs are trouble seeing or a sudden change in vision. ? F - Face. Signs are sudden weakness or numbness of the face, or the face or eyelid drooping on one side. ? A - Arms. Signs are weakness or numbness in an arm. This happens suddenly and usually on one sideof the body. ? S - Speech. Signs are sudden trouble speaking, slurred speech, or trouble understanding what people say. ? T - Time. Time to call emergency services. Write down what time symptoms started. You have other signs of a stroke, such as: ? A sudden, severe headache with no known cause. ? Nausea or vomiting. ? Seizure. These symptoms may represent a serious problem that is an emergency. Do not wait to see if the symptoms will go away. Get medical help right away. Call your local emergency services (911 in the [place] Do not drive yourself to the hospital. Summary Cholesterol plaques increase your risk for heart attack and stroke. Work with your health care provider to keep your cholesterol levels in a healthy range. Eat a healthy, balanced diet, get regular exercise, and maintain a healthy weight. Do not use any products that contain nicotine or tobacco. These products include cigarettes, chewing tobacco, and vaping devices, such as e-cigarettes. Get help right away if you have any symptoms of a stroke. This information is not intended to replace advice given to you by your health care provider. Make sure you discuss any questions you have with your health care provider. Document Released: 2006-03-18 Document Updated: 2022-10-19 Document Reviewed: 2021-05-22 [employer] Patient Education ? 2024 [employer] Dyslipidemia Dyslipidemia is an imbalance of waxy, fat-like substances (lipids) in the blood. The body needs lipids in small amounts. Dyslipidemia often involves a high level of cholesterol or triglycerides, which are types of lipids. Common forms of dyslipidemia include: High levels of LDL cholesterol. LDL is the type of cholesterol that causes fatty deposits (plaques)to build up in the blood vessels that carry blood away from the heart (arteries). Low levels of HDL cholesterol. HDL cholesterol is the type of cholesterol that protects against heart disease. High levels of HDL remove the LDL buildup from arteries. High levels of triglycerides. Triglycerides are a fatty substance in the blood that is linked to a buildup of plaques in the arteries. What are the causes? There are two main types of dyslipidemia: primary and secondary. Primary dyslipidemia is caused by changes (mutations) in genes that are passed down through families (inherited). These mutations cause several types of dyslipidemia. Secondary dyslipidemia may be caused by various risk factors that can lead to the disease, such as lifestyle choices and certain medical conditions. What increases the risk? You are more likely to develop this condition if you are an older man or if you are a woman who hasgone through menopause. Other risk factors include: Having a family history of dyslipidemia. Taking certain medicines, including control pills, steroids, some diuretics, and beta-blockers. Eating a diet high in saturated fat. Smoking cigarettes or excessive alcohol intake. Having certain medical conditions such as diabetes, polycystic ovary syndrome (PCOS), kidney disease, liver disease, or hypothyroidism. Not exercising regularly. Being overweight or obese with too much belly fat. What are the signs or symptoms? In most cases, dyslipidemia does not usually cause any symptoms. In severe cases, very high lipid levels can cause: Fatty bumps under the skin (xanthomas). A white or gordon ring around the black center (pupil) of the eye. Very high triglyceride levels can cause inflammation of the pancreas (pancreatitis). How is this diagnosed? Your health care provider may diagnose dyslipidemia based on a routine blood test (fasting blood test). Because most people do not have symptoms of the condition, this blood testing (lipid profile) is done on adults age 20 and older and is repeated every 4-6 years. This test checks: Total cholesterol. This measures the total amount of cholesterol in your blood, including LDL cholesterol, HDL cholesterol, and triglycerides. A healthy number is below 200 mg/dL (5.17 mmol/L). LDL cholesterol. The target number for LDL cholesterol is different for each person, depending on individual risk factors. A healthy number is usually below 100 mg/dL (2.59 mmol/L). Ask your health care provider what your LDL cholesterol should be. HDL cholesterol. An HDL level of 60 mg/dL (1.55 mmol/L) or higher is best because it helps to protect against heart disease. A number below 40 mg/dL (1.03 mmol/L) for men or below 50 mg/dL (1.29 mmol/L) for women increases the risk for heart disease. Triglycerides. A healthy triglyceride number is below 150 mg/dL (1.69 mmol/L). If your lipid profile is abnormal, your health care provider may do other blood tests. How is this treated? Treatment depends on the type of dyslipidemia that you have and your other risk factors for heart disease and stroke. Your health care provider will have a target range for your lipid levels based onthis information. Treatment for dyslipidemia starts with lifestyle changes, such as diet and exercise. Your health care provider may recommend that you: Get regular exercise. Make changes to your diet. Quit smoking if you smoke. Limit your alcohol intake. If diet changes and exercise do not help you reach your goals, your health care provider may also prescribe medicine to lower lipids. The most commonly prescribed type of medicine lowers your LDL cholesterol (statin drug). If you have a high triglyceride level, your provider may prescribe another type of drug (fibrate) or an omega-3 fish oil supplement, or both. Follow these instructions at home: Eating and drinking Follow instructions from your health care provider or dietitian about eating or drinking restrictions. Eat a healthy diet as told by your health care provider. This can help you reach and maintain a healthy weight, lower your LDL cholesterol, and raise your HDL cholesterol. This may include: ? Limiting your calories, if you are overweight. ? Eating more fruits, vegetables, whole grains, fish, and lean meats. ? Limiting saturated fat, trans fat, and cholesterol. Do not drink alcohol if: ? Your health care provider tells you not to drink. ? You are , may be , or are planning to become . If you drink alcohol: ? Limit how much you have to: ? 0?1 drink a day for women. ? 0?2 drinks a day for men. ? Know how much alcohol is in your drink. In the [place] one drink equals one 12 oz bottle of beer (355 mL), one 5 oz glass of wine (148 mL), or one 1? oz glass of hard liquor (44 mL). Activity Get regular exercise. Start an exercise and strength training program as told by your health care provider. Ask your health care provider what activities are safe for you. Your health care provider may recommend: ? 30 minutes of aerobic activity 4?6 days a week. Brisk walking is an example of aerobic activity. ? Strength training 2 days a week. General instructions Do not use any products that contain nicotine or tobacco. These products include cigarettes, chewing tobacco, and vaping devices, such as e-cigarettes. If you need help quitting, ask your health careprovider. Take diry-xfk-ifewrdb and prescription medicines only as told by your health care provider. This includes supplements. Keep all follow-up visits. This is important. Contact a health care provider if: You are having trouble sticking to your exercise or diet plan. You are struggling to quit smoking or to control your use of alcohol. Summary Dyslipidemia often involves a high level of cholesterol or triglycerides, which are types of lipids. Treatment depends on the type of dyslipidemia that you have and your other risk factors for heart disease and stroke. Treatment for dyslipidemia starts with lifestyle changes, such as diet and exercise. Your health care provider may prescribe medicine to lower lipids. This information is not intended to replace advice given to you by your health care provider. Make sure you discuss any questions you have with your health care provider. Document Released: 2014-03-23 Document Updated: 2022-10-19 Document Reviewed: 2021-05-22 [employer] Patient Education ? 2024 [employer] documented in this encounter Plan of Treatment Upcoming Encounters Date Type Department Care Team (Late st Contact Info) Description 01/25/2025 9:00 AM EDT Office Visit [facility] [address] [place] [address] Gerard Marcelo MD [address] [place] [address] documented as of this encounter Visit Diagnoses Diagnosis Hypercholesterolemia- Primary Pure hypercholesterolemia Class 1 obesity due to excess calories without serious comorbidity with body mass index (BMI) of 33.0 to 33.9 in adult Current severe episode of major depressive disorder without psychotic features without prior episode ([facility]) Elevated blood pressure reading Elevated blood pressure reading without diagnosis of hypertension documented in this encounter Additional Health Concerns Assessment Noted Time PHQ-9 Depression Total Score: 7 09/11/19 25 11:00 AM EDT documented as of this encounter Care Teams Cad Design Engineer Relationship Specialty Start Date End Date Gerard Marcelo MD [address] [place] [address] PCP - General Internal Medicine 04/30/13 documented as of this encounter
[2024-11-23 17:57] LABS: Alanine Aminotransferase 12 U/L (0-31); Albumin Level 4.1 g/dL (3.5-5.0); Alkaline Phosphatase 94 U/L (39-117); Aspartate Amino Transferase 17 U/L (5-31); Total Protein 7.1 g/dL (6.5-8.0)
--- OUTSIDE RECORDS SUMMARY | 2024-11-23 17:57 | XMS_ITS | Encounter Summary ---
Author Organization [facility] [employer] Address [address] [place] [address] Care Team Providers Care Safety Associate Name Role Phone Gerard Marcelo MD Primary Care Provider Encounter Details Date Type Department Care Team (Latest Contact Info) Description 06/08/2021 Abstract [facility] CONVERSIONS Dental, Provider, DDS Social History Tobacco Use Types Packs/Day Years Used Date Smoking Tobacco: Never Assessed Comments Unknown Sex and Gender Information Value Date Recorded Sex Assigned at Female 01/29/2022 10:16 AM EDT Legal Sex Female 10:16 AM EDT Gender Identity Female 01/29/2022 10:16 AM EDT Sexual Orientation Choose not to disclose 2021 10:16 AM EDT documented as of this encounter Plan of Treatment Upcoming Encounters Date Type Department Care Team (Late st Contact Info) Description 01/25/2025 9:00 AM EDT Office Visit [facility] [address] [place] [address] Gerard Marcelo MD [address] [place] [address] documented as of this encounter Visit Diagnoses Not on filedocumented in this encounter Care Teams Safety Associate Relationship Specialty Start Date End Date Gerard Marcelo MD [address] [place] [address] PCP - General Internal Medicine 04/30/13 documented as of this encounter
--- OUTSIDE RECORDS SUMMARY | 2024-11-23 17:57 | XMS_ITS | Encounter Summary ---
Author Organization [facility] [employer] Address [address] [place] [address] Care Team Providers Care Doffer Name Role Phone Gerard Marcelo MD Primary Care Provider [phone] Encounter Details Date Type Department Care Team (Latest Contact Info) Description 01/12/2019 Abstract [facility] CONVERSIONS Dental, Provider, DDS Social History Tobacco [...] Description 01/25/2025 9:00 AM EDT Office Visit [facility] PEDS [address] [place] [address] Gerard Marcelo MD [address] [place] [address] documented as of this encounter Visit Diagnoses Not on filedocumented in this encounter Care Teams Doffer Relationship Specialty Start Date End Date Gerard Marcelo MD [address] [place] [address] PCP - General Internal Medicine 04/30/13 documented as of this encounter
--- OUTSIDE RECORDS SUMMARY | 2024-11-23 17:57 | XMS_ITS | Encounter Summary ---
Author Organization [facility] [employer] Address [address] [place] [address] Care Team Providers Care Plastics Fabrication Supervisor Name Role Phone Gerard Marcelo MD Primary Care Provider Encounter Details Date Type Department Care Team (Latest Contact Info) Description 08/04/2020 Abstract [facility] CONVERSIONS Dental, Provider, DDS Social [...] Description 01/25/2025 9:00 AM EDT Office Visit [facility] MED [facility] PEDS [address] [place] [address] Gerard Marcelo MD [address] [place] [address] documented as of this encounter Visit Diagnoses Not on filedocumented in this encounter Care Teams Plastics Fabrication Supervisor Relationship Specialty Start Date End Date Gerard Marcelo MD [address] [place] [address] PCP - General Internal Medicine 04/30/13 documented as of this encounter
--- OUTSIDE RECORDS SUMMARY | 2024-11-23 17:57 | XMS_ITS | Encounter Summary ---
Author Organization [employer] Address [address] [place] [address] Care Team Providers Care Tax Services Intern Name Role Phone Gerard Marcelo MD Primary Care Provider Encounter Details Date Type Department Care Team (Late st Contact Info) Description 09/18/2024 Orders Only [facility] MED & PEDS [address] [place] [place] [phone] Gerard Marcelo MD [address] [place] [address] Transaminitis (Primary Dx); Elevated TSH Social History Tobacco Use Types Packs/Day Years [...] Upcoming Encounters Date Type Department Care Team ([facility] st Contact Info) Description 01/25/2025 9:00 AM EDT Office Visit [facility] MED & PEDS [address] [place] [address] Gerard Marcelo MD [address] [place] [address] Scheduled Orders Name Type Priority Associated Diagnoses Orde r Schedule Thyroid Peroxidase Antibodies Lab Routine Transaminitis Elevated TSH Expected: 09/18/2024 (Approximate), Expires: 09/18/2025 TSH W/Reflex to FT4 Lab Routine Transaminitis Elevated TSH Expected: 09/18/2024 (Approximate), Expires: 09/18/2025 Hepatic Function Panel Lab Routine Transaminitis Elevated TSH Expected: 09/18/2024 (Approximate), Expires: 09/18/2025 documented as of this encounter Visit Diagnoses Diagnosis Transaminitis- Primary Nonspecific elevation of levels of transaminase or lactic acid dehydrogenase (LDH) Elevated TSH Other abnormal blood chemistry documented in this encounter Additional Health Concerns Assessment Noted Time PHQ-9 Depression Total Score: 7 09/11/19 25 11:00 AM EDT documented as of this encounter Care Teams Tax Services Intern Relationship Specialty Start Date End Date Gerard Marcelo MD [address] [place] [address] PCP - General Internal Medicine 04/30/13 documented as of this encounter
--- OUTSIDE RECORDS SUMMARY | 2024-11-23 17:57 | XMS_ITS | Encounter Summary ---
Author Organization [employer] Address [address] [facility] [address] [place] [address] Care Team Providers Care Automatic Pinsetter Adjuster Name Role Phone Gerard Marcelo MD Primary Care Provider Reason for Visit * Reason Onset Date Comments appt 11/04/2023 Encounter Details Date Type Department Care Team ([facility] Contact Info) Description 11/04/2023 Telephone C [facility] ADULT [facility]AL [address] [place] [address] Carlos Manuel, Hasmukh, DMD [address] [place], [place] [phone] appt Social History Tobacco Use Types Packs/Day [...] Tran but are ok with continuing in [facility] withanother provider. Active requested since 05/2023. documented in this encounter Plan of Treatment Upcoming Encounters Date Type Department Care Team ([facility] Contact Info) Description 01/25/2025 9:00 AM EDT Office Visit [facility] MED & PEDS [address] [place] [address] Gerard Marcelo MD [address] [place] [address] documented as of this encounter Visit Diagnoses Not on filedocumented in this encounter Additional Health Concerns Assessment Noted Time PHQ-9 Depression Total Score: 0 12/07/19 23 2:15 PM EDT documented as of this encounter Care Teams Automatic Pinsetter Adjuster Relationship Specialty Start Date End Date Gerard Marcelo MD [address] [place] [address] PCP - General Internal Medicine 04/30/13 documented as of this encounter
--- OUTSIDE RECORDS SUMMARY | 2024-11-23 17:57 | XMS_ITS | Encounter Summary ---
Author Organization [employer] Address [address] [place] [address] Care Team Providers Care Animal Trainer Supervisor Name Role Phone Gerard Marcelo MD Primary Care Provider [phone] Encounter Details Date Type Department Care Team (Latest Contact Info) Description 11/22/2024 Travel Social History Tobacco Use Types Packs/Day Years [...] Description 01/25/2025 9:00 AM EDT Office Visit [facility] MED & PEDS [address] [place] [address] Gerard Marcelo MD [address] [place] [address] documented as of this encounter Visit Diagnoses Not on filedocumented in this encounter Additional Health Concerns Assessment Noted Time PHQ-9 Depression Total Score: 7 09/11/19 25 11:00 AM EDT documented as of this encounter Care Teams Animal Trainer Supervisor Relationship Specialty Start Date End Date Gerard Marcelo MD [address] [place] [address] PCP - General Internal Medicine 04/30/13 documented as of this encounter
--- OUTSIDE RECORDS SUMMARY | 2024-11-23 17:57 | XMS_ITS | Encounter Summary ---
Author Organization [employer] Address [address] [facility] [address] [place] [address] Care Team Providers Care Geriatrics Physician Name Role Phone Gerard Marcelo MD Primary Care Provider Encounter Details Date Type Department Care Team (Latest Contact Info) Description 06/09/2020 Abstract [facility] CONVERSIONS Dental, Provider, DDS Social History Tobacco [...] Description 01/25/2025 9:00 AM EDT Office Visit [facility] CHC MED & PEDS [address] [place] [address] Gerard Marcelo MD [address] [place] [address] documented as of this encounter Visit Diagnoses Not on filedocumented in this encounter Care Teams Geriatrics Physician Relationship Specialty Start Date End Date Gerard Marcelo MD [address] [place] [address] PCP - General Internal Medicine 04/30/13 documented as of this encounter
--- OUTSIDE RECORDS SUMMARY | 2024-11-23 17:57 | XMS_ITS | Clinical Summary ---
Author Organization [facility] Address [address] [place] [address] Care Team Providers Care Letterer Name Role Phone Unavailable Primary Care Provider Unavailabl e Social History Tobacco Use Types Packs/Day Years Used Date Smoking Tobacco: Never Assessed Comments Unknown Sex and Gender Information Value Date Recorded Sex Assigned at Not on file Legal Sex Female 11:34 AM EST Gender Identity Not on file Sexual Orientation Not on file Plan of Treatment Health Maintenance Due Date Last Done Comments DTaP,Tdap,and Td Vaccines (1 - Tdap) 12/16/2007 Hepatitis B Vaccines (1 of 3 - 19+ 3-dose series) 12/16/2007 Cervical Cancer Screening: P ap Smear 2009 COVID-19 Vaccine ( - 2023-2 5 season) 2023 Depression Screening 04/01/2024 Influenza Vaccine (#1) 2024 HIB Vaccines Aged Out No longer eligi ble based on patient's age to complete this topic HPV Vaccines Aged Out No longer eligi ble based on patient's age to complete this topic Hepatitis A Vaccines Aged Out No long er eligible based on patient's age to complete this topic IPV Vaccines Aged Out No longer eligi ble based on patient's age to complete this topic MMR Vaccines Aged Out No longer eligi ble based on patient's age to complete this topic Meningococcal ACWY Vaccine Aged Out N o longer eligible based on patient's age to complete this topic Meningococcal B Vaccine Aged Out No l onger eligible based on patient's age to complete this topic Pneumococcal Vaccine: Pediat rics (0 to 5 Years) and At-Risk Patients (6 to 49 Years) Aged Out No longer eligible b ased on patient's age to complete this topic RSV Immunization Patients Un kaci 20 months Aged Out No longer eligible b ased on patient's age to complete this topic Varicella Vaccines Aged Out No longer eligible based on patient's age to complete this topic
--- OUTSIDE RECORDS SUMMARY | 2024-11-23 17:57 | XMS_ITS | Encounter Summary ---
Author Organization [email or web address] Address [address] [place] [address] Care Team Providers Care Pit Hand Name Role Phone Gerard Marcelo MD Primary Care Provider Encounter Details Date Type Department Care Team (Latest Contact Info) Description 11/23/2024 Travel Social History Tobacco Use Types Packs/Day [...] Description 01/25/2025 9:00 AM EDT Office Visit [facility] MED & PEDS [address] [place] [address] Gerard Marcelo MD [address] [place] [address] documented as of this encounter Visit Diagnoses Not on filedocumented in this encounter Additional Health Concerns Assessment Noted Time PHQ-9 Depression Total Score: 7 09/11/19 25 11:00 AM EDT documented as of this encounter Care Teams Pit Hand Relationship Specialty Start Date End Date Gerard Marcelo MD [address] [place] [address] PCP - General Internal Medicine 04/30/13 documented as of this encounter
--- OUTSIDE RECORDS SUMMARY | 2024-11-23 17:57 | XMS_ITS | Encounter Summary ---
Author Organization [facility] [employer] Address [address] [place] [address] Care Team Providers Care Filling And Stapling Machine Operator Name Role Phone Gerard Marcelo MD Primary Care Provider Encounter Details Date Type Department Care Team (Latest Contact Info) Description 07/08/2018 Abstract [facility] CONVERSIONS Dental, Provider, DDS Social History [...] 9:00 AM EDT Office Visit [facility] CHC MED & PEDS [address] [place] [address] Gerard Marcelo MD [address] [place] [address] documented as of this encounter Visit Diagnoses Not on filedocumented in this encounter Care Teams Filling And Stapling Machine Operator Relationship Specialty Start Date End Date Gerard Marcelo MD [address] [place] [address] PCP - General Internal Medicine 04/30/13 documented as of this encounter
--- OUTSIDE RECORDS SUMMARY | 2024-11-23 17:57 | XMS_ITS | Clinical Summary ---
Author Organization [employer] Address [address] [place] [address] Care Team Providers Care Barkeep Name Role Phone Gerard Marcelo MD Primary Care Provider Allergies Active Allergy Reactions Criticality Noted Date Comments Amoxicillin Rash Low 06/09/2020 Medications * This document contains information received from the source organization and may not represent a complete record from that organization. propranolol XL (Innopran XL) 80 MG 24 hr capsule Take 1 capsule by mouth at bed time. 019 Active SUMAtriptan (Imitrex) 100 MG tablet Take 1 tablet by mouth. 019 Active aspirin-acetaminoph en-caffeine (Excedrin Migraine) 250-250-65 MG tablet Take 1 tablet by mouth every 6 (six) hours if needed for headaches. Active Sodium Fluoride 1.1 % creamIndications:De ntal caries,Dentin hypersensitivity [place] teeth for 2 minutes, morning and night. Spit, do not rinse. Do not eat or drink anything for 30 minutes following use. 112 g 3 025 Active methocarbamol (Robaxin) 750 MG tabletIndications:S train of neck muscle, initial encounter Take 1 tablet (750 mg) by mouth 4 times daily for 10 days. 40 tablet 025 Active triamcinolone (Kenalog) 0.1 % ointmentIndications :Irritant contact dermatitis due to other chemical products Apply topically 2 times daily. 15 g 025 Active topiramate (Topamax) 25 MG tabletIndications:C lass 1 obesity due to excess calories without serious comorbidity with body mass index (BMI) of 33.0 to 33.9 in adult Take 1 tablet (25 mg) by mouth every 12 (twelve) hours. 60 tablet 11 025 2025 Active phentermine 8 MG tabletIndications:C lass 1 obesity due to excess calories without serious comorbidity with body mass index (BMI) of 33.0 to 33.9 in adult Take 1 tablet (8 mg) by mouth Once per day. 28 tablet Active phentermine 15 MG capsuleIndications: Class 1 obesity due to excess calories without serious comorbidity with body mass index (BMI) of 33.0 to 33.9 in adult TAKE ONE CAPSULE EVERY MORNING BEFORE BREAKFAST 30 capsule 025 2024 Discontinued phentermine 15 MG capsuleIndications: Class 1 obesity due to excess calories without serious comorbidity with body mass index (BMI) of 33.0 to 33.9 in adult TAKE ONE CAPSULE EVERY MORNING BEFORE BREAKFAST 30 capsule 025 2024 Discontinued(D ose adjustment) Active Problems Problem Noted Date Diagnosed Date Current severe episode of ma ladonna depressive disorder without psychotic features without prior episode 06/09/2024 JUAN C (generalized anxiety disorder) 06/09/2024 Migraine 06/19/2011 Obesity 06/19/2011 Encounters * This document contains information received from the source organization and may not represent a complete record from that organization. 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 ([facility]); Elevated blood pressure reading 11/23/2024 Travel 11/22/2024 Travel 11/09/2024 Refill [facility] [address] [place] [address] Migdalia Murray MD Class 1 obesity due to excess calories without serious comorbidity with body mass index (BMI) of 33.0 to 33.9 in adult 10/08/2024 Refill [facility] [address] [place] [address] Gerard Marcelo MD Class 1 obesity due to excess calories without serious comorbidity with body mass index (BMI) of 33.0 to 33.9 in adult 09/18/2024 Orders Only [facility] [address] [place] [address] Gerard Marcelo MD Transaminitis (Primary Dx); Elevated TSH 09/14/2024 Results Follow-Up [facility] [address] [place] [address] Gerard Marcelo MD T4, Free 09/10/2024 10:45 AM EDT Office Visit [facility] [address], [place] [phone] Gerard Marcelo MD Annual physical exam (Primary Dx); Dietary counseling; Exercise counseling; Class 1 obesity due to excess calories without serious comorbidity with body mass index (BMI) of 33.0 to 33.9 in adult; JUAN C (generalized anxiety disorder); Encounter for immunization 09/10/2024 Travel 09/01/2024 Patient Outreach [facility] [address] [place] [address] Gerard Marcelo MD Pre-visit Planning (SDOH screening negative and Tobacco screening negative) from Last 3 Months Immunizations Immunization Administration Dates Next Due Hep B, adult 09/10/2024 Influenza Quadrivalent Adjuvanted 12/27/2021 Influenza injectable quadriv alent IIV4 with preservative 12/06/2022 Influenza, IIV3, injectable 01/19/2014 Influenza, seasonal, injectable, preservative fr ee 05/27/2024 MMR 10/28/2012 Tdap 09/10/2024,09/16/2014 Family History Medical History Relation Name Comments Hypertension Father Breast cancer Maternal Grandmother Hypertension Mother Migraines Mother Relation Name Status Comments Father Maternal Grandmother Mother Social History Tobacco Use Types Packs/Day Years Used Date Smoking Tobacco: Never Passive Smoke Exposure: Never Smokeless Tobacco: Never Tobacco Cessation:Counseling Given: Not Answered Alcohol Use Standard Drinks/Week Comments Defer 0 [...] not to disclose 2021 10:16 AM EDT Last Filed Vital Signs Vital Sign Reading [...] Mass Index 31.95 11/23/2024 2:46 PM EDT Plan of Treatment Upcoming Encounters Date Type Department Care Team (Late st Contact Info) Description 01/25/2025 9:00 AM EDT Office Visit [facility] [address] [place] [address] Gerard Marcelo MD [address] [place] [address] Health Maintenance Due Date Last Done Comments Family Planning (PISQ) 12/16/2003 HPV Vaccines (1 - 3-dose series) 12/16/2003 Dental X-Ray: Full Mouth 08/06/2023 08/04/2020, 06/30 COVID-19 Vaccine ( season) 2023 07/13/2021, 01/26/2021, 01/05/2021 Dental Prophylaxis 09/26/2024 03/27/2024, 0 05/02/2023, 06/08/2021, Additional history exists Dental Oral Exam 10/05/2024 04/06/2024, 04/2023, 06/08/2021, Additional history exists Hepatitis B Vaccines (2 of 3 - 19+ 3-dose series) 10/08/2024 09/10/2024 Influenza Vaccine (#1) 2024 , 12/06/2022, 12/27/2021, Additional history exists Dental X-Ray: Bitewings 03/28/2025 03/27/20 24, 05/02/2023, 06/08/2021, Additional history exists Tobacco Screening 05/27/2025 05/27/2024 Alcohol/Substance Use Screening 09/10/2025 09/10/2024 Depression Screening 09/10/2025 09/10/2024, 09/11/19 25 SDOH Screening 09/10/2025 09/10/2024 Disability Screening 11/22/2025 11/22/2024 Cervical Cancer Screening 12/26/2026 HPV/Cotest 12/26/2026 12/26/2021, 12/26/2021 Pap Smear 12/26/2026 Lipid Panel 09/10/2029 09/10/2024, 12/06/2022 DTaP/Tdap/Td Vaccines (3 - Td or Tdap) 09/10/2034 09/10/2024, 09/16/2014 Zoster Vaccines (1 of 2) 2038 RSV Patients and Patients Aged 60 years or older (1 - 1-dose 75+ series) 12/16/2063 HIV Screening Completed 03/01/2021 Hepatitis C Screening Completed 12/06/2022, 021 HIB Vaccines Aged Out No longer eligi [...] patient's age to complete this topic Meningococcal Vaccine Aged Out No supa samuel eligible based on patient's age to complete this topic Pneumococcal Vaccine: Pediatrics (0 to 5 Years) and At-Risk Patients (6 to 49) Years Aged Out No longer eligible based on patient's age to complete this topic RSV under 20 months Aged Out No longe r eligible based on patient's age to complete this topic Rotavirus Vaccines Aged Out No longer eligible based on patient's age to complete this topic Procedures Procedure Name Priority Date/Time Associated Diagnosis Comments T4, FREE Routine 09/10/2024 12:00 AM EDT TSH W/REFLEX TO FT4 Routine 09/10/2024 1 2:00 AM EDT Annual physical exam LIPID PANEL, STANDARD Routine 09/10/2024 12:00 AM EDT Annual physical exam COMPREHENSIVE METABOLIC PANEL Routine 09/10/2024 12:00 AM EDT Annual physical exam CBC WITH AUTO DIFFERENTIAL Routine 09/10/2024 12:00 AM EDT Annual physical exam PERIODIC ORAL EVALUATION - ESTABLISHED PATIENT Routine 04/06/2024 8:00 AM EST Dental caries PROPHYLAXIS - ADULT Routine 03/27/2024 8 :00 AM EST BITEWING - SINGLE RADIOGRAPHIC IMAGE Routine 03/27/2024 8:00 AM EST Pain, dental HEPATITIS C AB W/REFL TO HCV RNA, QN, PCR Routine 12/06/2022 2:42 PM EDT Chronic migraine without aura without status migrainosus, not intractable Class 1 obesity due to excess calories without serious comorbidity with body mass index (BMI) of 33.0 to 33.9 in adult [facility] HISTORICAL HPV E6/E7 RFLX ADDIS 16 18/45 Routine 12/26/2021 2:43 PM EDT [facility] HISTORICAL HIV AB/AG Routine 03/01/2021 9:17 AM EST PANORAMIC RADIOGRAPHIC IMAGE Routine 08/04/2020 12:00 AM EDT from Last 3 Months or Most Recently Relevant to Health Maintenance Results * (ABNORMAL) TSH W/Reflex to FT4 (09/10/2024 12:00 AM EDT) TSH reflex Free T4 8.91(H) 0.32 - 4.0 uIU/mL [facility] Blood Venous blood specimen / Unknown 09/10/2024 09/10/2024 us Gerard Marcelo MD LAB BLOOD ORDERABLES Final Result [facility] [address] [place] [phone] * (ABNORMAL) CBC auto differential (09/10/2024 12:00 AM EDT) White Blood Count 7.6 4.8 - 10.8 X10*3/uL [facility] Red Blood Count 3.98(L) 4.20 - 5.50 X10*6/uL [facility] Hemoglobin 12.2 12.0 - 16.0 g/dl [facility] Hematocrit 35.6(L) 37.0 - 47.0 % [facility] Mean Corpuscular Volume 89.4 80.0 - 98.0 fL [facility] Mean Corpuscular Hemoglobin 30.7 27.0 - 33.0 pg [facility] Mean Corpuscular HGB Conc 34.3 31.0 - 35.0 g/dl [facility] Red Cell Distribution Width 12.7 11.0 - 16.0 % [facility] Platelet Count 428(H) 160 - 400 X10*3/uL [facility] Mean Platelet Volume 8.9(L) 9.4 - 12.3 fL [facility] Neutrophils Percent Auto 65.7 45 - 73 % [facility] Imm Gran Pct Auto 0.3 0.0 - 0.4 % [facility] Lymphocytes Percent Auto 23.5 20 - 40 % [facility] Monocytes Percent Auto 6.9 2 - 11 % [facility] Eosinophils Percent Auto 2.9 0 - 4 % [facility] Basophils Percent Auto 0.7 0 - 2 % [facility] NRBC Pct Auto 0.0 0.0 - 0.2 /100WBC [facility] Neutrophils Absolute Auto 5.0 2.0 - 8.3 x10*3/uL [facility] Imm Gran Abs Auto 0.02 0.00 - 0.03 X10*3/uL [facility] Lymphocytes Absolute Auto 1.8 1.2 - 4.9 X10*3/uL [facility] Monocytes Absolute Auto 0.5 0.1 - 1.2 X10*3/uL [facility] Eosinophils Absolute Auto 0.2 0.0 - 0.4 X10*3/uL [facility] Basophils Absolute Auto 0.1 0.0 - 0.2 X10*3/uL [facility] NRBC Abs Auto 0.000 0.0 - 0.012 X10*3/uL [facility] Blood Venous blood specimen / Unknown 09/10/2024 09/10/2024 us Gerard Marcelo MD LAB BLOOD ORDERABLES Final Result [facility] [address] [place] [phone] * T4, Free (09/10/2024 12:00 AM EDT) Free T4 (Free Thyroxine) 0.75 0.71 - 1.85 ng/dL [facility] 09/10/2024 09/10/2024 us Gerard Marcelo MD LAB BLOOD ORDERABLES Final Result Performing Organization Address [facility] de Phone Number [facility] [address] [place] [phone] * (ABNORMAL) Lipid Panel, Standard (09/10/2024 12:00 AM EDT) Triglycerides 160(H) <150 mg/dL [facility] Comment:Slight Lipemia.Bravo able Triglyceride: less than 150 mg/dLBorderline High Triglyceride 150-199 mg/dLHigh Triglyceride: 200-499 mg/dLVery High Triglyceride: greater than or equal to 5OO mg/dL Cholesterol 226(H) <200 mg/dL [facility] Comment:Desirable Cholestero l: less than 200 mg/dLBorderline High Cholesterol: 200-239 mg/dLHigh Cholesterol: greater than 239 mg/dL LDL Cholesterol Calculated 139(H) <100 mg/dL [facility] Comment:Desirable LDL: less than 100 mg/dLNear Optimal/Above Optimal LDL: 110- 129 mg/dLBorderline High LDL: 130-159 mg/dLHigh LDL: 160-189 mg/dLVery High LDL: greater than or equal to 190 mg/dL HDL Cholesterol 55 >40 mg/dL [facility] Comment:Desirable HDL: great er than 40 mg/dL Note: This HDL assay may give artificially low results in patients with liver disease. Blood Venous blood specimen / Unknown 09/10/2024 09/10/2024 us Gerard Marcelo MD LAB BLOOD ORDERABLES Final Result Performing Organization Address [facility]/ZIP Co de Phone Number [facility] [address] [place] [phone] * (ABNORMAL) Comprehensive Metabolic Panel (09/10/2024 12:00 AM EDT) [facility] Sodium 139 135 - 145 mmol/L [facility] Potassium 4.2 3.3 - 5.1 mmol/L [facility] Chloride 109(H) 96 - 108 mmol/L [facility] Carbon Dioxide 25 22 - 29 mmol/L [facility] Anion Gap 9(L) 12 - 20 [facility] Urea Nitrogen (BUN) 9 9 - 16 mg/dL [facility] Creatinine, Serum 0.68 0.5 - 1.4 mg/dL [facility] Estimated Glomerular Filt Rate >60 [facility] Comment:Chronic Kidney Disea se: Estimated GFR < 60 mL/min/[id number] Kidney Disease: Estimated GFR < 15 mL/min/1.73m2 Glucose 92 60 - 115 mg/dL [facility] Calcium 9.1 8.4 - 10.2 mg/dL [facility] Bilirubin, Total 0.4 0.0 - 1.0 mg/dL [facility] Aspartate Amino Transferase 33(H) 5 - 31 U/L [facility] Alanine Aminotransferase 28 0 - 31 U/L [facility] Total Protein 7.1 6.5 - 8.0 g/dL [facility] Albumin Level 4.1 3.5 - 5.0 g/dL [facility] Alkaline Phosphatase 84 39 - 117 U/L [facility] Blood Venous blood specimen / Unknown 09/10/2024 09/10/2024 us Gerard Marcelo MD LAB BLOOD ORDERABLES Final Result [facility] [address] [place] [phone] * Hepatitis C Antibody with Reflex to HCV, RNA, Quantitative, Real-Time PCR (12/06/2022 2:42 PM EDT) [facility] Hepatitis C Antibody Nonreactive Nonreactive [facility] Comment:Antibodies to HCV no t detected; does not exclude early acuteHCV infection. Blood Venous blood specimen / Unknown 12/06/2022 2:42 PM EDT 12/06/2022 5:14 PM EDT Gerard Marcelo MD LAB BLOOD ORDERABLES Final Result Performing Organization Address [facility]/ZIP Co de Phone Number [facility] [address] [place] [address] [phone] * HPV E6/E7 RFLX ADDIS 16 18/45 (12/26/2021 2:43 PM EDT) [facility] HPV mRNA E6/E7 rflx Not Detected Not Detected [facility] Comment: Methodology: Medical Social Worker-Mediated Amplification This assay detects E6/E7 viral messenger RNA (mRNA) from 14 high-risk HPV types (16,18,31,33,35,39,45,51,52,56,58,59,66,68). Cervical sources are required for HPV testing. If a vaginal source from a patient who has had a total hysterectomy with removal of cervix was submitted, please contact the testing laboratory for alternative testing options. For additional information, please refer to http://education.[employer]/faq/EGE032w4 (This link if provided for information/ educational purposes only.) THIS TEST WAS PERFORMED AT: [facility] [address] [place] [address] FLO[address],[place] [phone] SARI AVILES MD 12/26/2021 2:43 PM EDT Gin Maynard HISTORICAL/NON ORDERABLE LABS Fi nal Result [facility] * HIV AB/AG (03/01/2021 9:17 AM EST) [facility] HIV AB/AG Nonreactive Nonreactive [facility] Comment: HIV-1 p24 Ag and/or HIV-1/HIV-2 Ab not detected. A test result that is nonreactive does not exclude the possibility of exposure to or infection with HIV-1 and/or HIV-2. Nonreactive results in this assay for individuals with prior exposure to HIV-1 and/or HIV-2 may be due to antigen and antibody levels that are below the limit of detection of this assay. The [facility] HIV Ag/Ab Combo assay result and supplemental assay results should be interpreted in conjunction with the patient's clinical presentation, history and other laboratory results. If the results are inconsistent with clinical evidence, additional testing is suggested to confirm the result. Hepatitis C Antibody Nonreactive Nonreactive [facility] Comment: Antibodies to HCV not detected; does not exclude early acute HCV infection. Hepatitis B Core Antibody Nonreactive Nonreactive [facility] 03/01/2021 9:17 AM EST us Bety [facility] HISTORICAL/NON ORDERABLE LABS Fi nal Result [facility] [address] from Last 3 Months or Most Recently Relevant to Health Maintenance Insurance [facility] C3 [facility] MEDICAID STAND ADULT Care Teams Barkeep Relationship Specialty Start Date End Date Gerard Marcelo MD [address] [place] [address] [place]OTE[place] Mckeon [phone] PCP - General Internal Medicine 04/30/13
[2024-11-23 19:06] LABS: Free T4 (Free Thyroxine) 0.70 ng/dL (0.71-1.85)
== END 2024-11-23 16:02 | disposition home or self-care (01) ==
LOC: HO.CHCLDS 16:01
PROVIDERS: Visit Provider Internal Medicine
DX: R74.01 Elevation of levels of liver transaminase levels (principal); R79.89 Other specified abnormal findings of blood chemistry
CPT/HCPCS: 36415; 80076; 84439; 84443; 86376

== ENCOUNTER 2025-02-23 08:24 | Outpatient (AMB) | payer MEDICAID, SELFPAY ==
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
--- OUTSIDE RECORDS SUMMARY | 2025-02-23 08:40 | XMS_ITS | Encounter Summary ---
Author Organization [employer] Address [address] [facility] 7t [place] [address] Care Team Providers Care Gumming Machine Operator Name Role Phone Gerard Marcelo MD Primary Care Provider [phone] Encounter Details Date Type Department Care Team (Latest Contact Info) Description 06/09/2020 Abstract [facility] CONVERSIONS Dental, Provider, DDS Social History [...] as of this encounter Plan of Treatment Not on file documented as of this encounter Visit Diagnoses Not on filedocumented in this encounter Care Teams Gumming Machine Operator Relationship Specialty Start Date End Date Gerard Marcelo MD [address] [facility] [place] [address] PCP - General Internal Medicine 04/30/13 documented as of this encounter
--- OUTSIDE RECORDS SUMMARY | 2025-02-23 08:40 | XMS_ITS | Encounter Summary ---
Author Organization [employer] Address [address] [facility] 7t [place] [address] Care Team Providers Care Neon Installer Name Role Phone Gerard Marcelo MD Primary Care Provider [phone] Reason for Referral * Consultation (Urgent) - Closed Specialty Diagnoses / Procedures Referred By Contac t Referred To Contact Endocrinology Diagnoses Elevated TSH Gerard Marcelo MD [address] [place] [address] Phone: tel: fax: [facility] [address] [place] [address] Phone: tel: fax: Referral ID Status Reason Start Date Expiration Date V isits Requested Visits Authorized [id number] Closed Specialty Services Required 11/25/2024 11/25/2025 1 1 Encounter Details Date Type Department Care Team (Late st Contact Info) Description 11/23/2024 Orders Only [facility] MED [facility] PEDS [address] [place], [place] [phone] Gerard Marcelo MD [address] [place] [address] Chronic migraine without aura without status migrainosus, not intractable (Primary Dx); Elevated TSH Social History Tobacco [...] as of this encounter Plan of Treatment Scheduled Referrals Name Type Priority Associated Diagnoses Order Schedule Referral to Endocrinology Outpatient Referral Urgent Elevated TSH Expected: 11/25/2024 (Approximate), Expires: 11/25/2025 documented as of this encounter Visit Diagnoses Diagnosis Chronic migraine without aura without status migrainosus, not intractable- Primary Elevated TSH Other abnormal blood chemistry documented in this encounter Additional Health Concerns Assessment Noted Time PHQ-9 Depression Total Score: 7 09/11/19 25 11:00 AM EDT documented as of this encounter Care Teams Neon Installer Relationship Specialty Start Date End Date Gerard Marcelo MD [address] [place] [id number] PCP - General Internal Medicine 04/30/13 documented as of this encounter
--- OUTSIDE RECORDS SUMMARY | 2025-02-23 08:40 | XMS_ITS | Clinical Summary ---
Author Organization [facility] Address [address] [place] [address] Care Team Providers Care Whitewater Rafting Guide Name Role Phone Unavailable Primary Care Provider [...] Cervical Cancer Screening: P ap Smear 2009 HPV Vaccines (1 - 3-dose SCD M series) 12/16/2015 Depression Screening 04/01/2024 COVID-19 Vaccine ( - 2024-2 6 season) 2024 Influenza Vaccine (#1) 2024 RSV Immunization Adult Patie nts (1 - 1-dose 75+ series) 12/16/2063 HIB Vaccines Aged Out No longer eligi [...]
--- OUTSIDE RECORDS SUMMARY | 2025-02-23 08:40 | XMS_ITS | Encounter Summary ---
Author Organization [employer] Address [address] [facility] 7t [place] [address] Care Team Providers Care Converter Supervisor Name Role Phone Gerard Marcelo MD Primary Care Provider Encounter Details Date Type Department Care Team (Latest Contact Info) Description 06/08/2021 Abstract [facility] CONVERSIONS Dental, Provider, DDS Social History [...] on filedocumented in this encounter Care Teams Converter Supervisor Relationship Specialty Start Date End Date Gerard Marcelo MD [address] [facility] [place] [address] PCP - General Internal Medicine 04/30/13 documented as of this encounter
--- OUTSIDE RECORDS SUMMARY | 2025-02-23 08:40 | XMS_ITS | Encounter Summary ---
Author Organization [employer] Address [address] [facility] [address] [place] [address] Care Team Providers Care Stamp Clerk Name Role Phone Gerard Marcelo MD Primary Care Provider Encounter Details Date Type Department Care Team (Late st Contact Info) Description 09/18/2024 Orders Only [facility] MED [facility] PEDS [address] [place] [phone] Gerard Marcelo MD [address] [place] [address] Transaminitis (Primary Dx); Elevated TSH Social History [...] on file documented as of this encounter Procedures Procedure Name Priority Date/Time Associated Diagnosis Comments TSH W/REFLEX TO FT4 Routine 11/23/2024 4 :03 PM EDT Transaminitis Elevated TSH THYROID PEROXIDASE ANTIBODIES Routine 11/23/2024 4:03 PM EDT Transaminitis Elevated TSH HEPATIC FUNCTION PANEL Routine 11/23/2024 4:03 PM EDT Transaminitis Elevated TSH documented in this encounter Results * Hepatic Function Panel (11/23/2024 4:03 PM EDT) Bilirubin, Total 0.5 0.0 - 1.0 mg/dL [facility] Bilirubin, Direct 0.2 0.0 - 0.5 mg/dL [facility] Aspartate Amino Transferase 17 5 - 31 U/L [facility] Alanine Aminotransferase 12 0 - 31 U/L [facility] Total Protein 7.1 6.5 - 8.0 g/dL [facility] Albumin Level 4.1 3.5 - 5.0 g/dL [facility] Alkaline Phosphatase 94 39 - 117 U/L [facility] Blood Venous blood specimen / Unknown 11/23/2024 4:03 PM EDT 11/23/2024 5:21 PM EDT us Gerard Marcelo MD LAB BLOOD ORDERABLES Final Result Performing Organization Address [facility] Co de Phone Number [facility] [address] [place] [phone] * (ABNORMAL) TSH W/Reflex to FT4 (11/23/2024 4:03 PM EDT) TSH reflex Free T4 5.73(H) 0.32 - 4.0 uIU/mL [facility] Blood Venous blood specimen / Unknown 11/23/2024 4:03 PM EDT 11/23/2024 5:21 PM EDT us Gerard Marcelo MD LAB BLOOD ORDERABLES Final Result Performing Organization Address [facility] Co de Phone Number [facility] [address] [place] [phone] * (ABNORMAL) Thyroid Peroxidase Antibodies (11/23/2024 4:03 PM EDT) Thyroid Peroxidase Antibodies >900(A) <9 IU/mL [facility] Comment:THIS TEST WAS PERFOR MED AT:[id number] [place] [phone] AVILES MD Blood Venous blood specimen / Unknown 11/23/2024 4:03 PM EDT 11/23/2024 5:21 PM EDT us Gerard Marcelo MD LAB BLOOD ORDERABLES Final Result Performing Organization Address [facility] Co de Phone Number [facility] [address] [place] [phone] documented in this encounter Visit Diagnoses Diagnosis Transaminitis- Primary Nonspecific elevation of levels of transaminase or lactic acid dehydrogenase (LDH) Elevated TSH Other abnormal blood chemistry documented in this encounter Additional Health Concerns Assessment Noted Time PHQ-9 Depression Total Score: 7 09/11/19 25 11:00 AM EDT documented as of this encounter Care Teams Stamp Clerk Relationship Specialty Start Date End Date Gerard Marcelo MD [address] [place] [id number] PCP - General Internal Medicine 04/30/13 documented as of this encounter
--- OUTSIDE RECORDS SUMMARY | 2025-02-23 08:40 | XMS_ITS | Encounter Summary ---
Author Organization [employer] Address [address] [facility] 7t [place] [address] Care Team Providers Care Theoretical Physics Teacher Name Role Phone Gerard Marcelo MD Primary Care Provider [phone] Encounter Details Date Type Department Care Team (Latest Contact Info) Description 01/12/[address] [facility] CONVERSIONS Dental, Provider, DDS Social History [...] on filedocumented in this encounter Care Teams Theoretical Physics Teacher Relationship Specialty Start Date End Date Gerard Marcelo MD [address] [facility] [place] [address] PCP - General Internal Medicine 04/30/13 documented as of this encounter
--- OUTSIDE RECORDS SUMMARY | 2025-02-23 08:40 | XMS_ITS | Encounter Summary ---
Author Organization [employer] Address [address] [facility] 7t [place] [address] Care Team Providers Care Settlement Technician Name Role Phone Gerard Marcelo MD Primary Care Provider Encounter Details Date Type Department Care Team (Latest Contact Info) Description 08/04/2020 Abstract [facility] CONVERSIONS Dental, Provider, DDS Social [...] on filedocumented in this encounter Care Teams Settlement Technician Relationship Specialty Start Date End Date Gerard Marcelo MD [address] [facility] [place] [address] PCP - General Internal Medicine 04/30/13 documented as of this encounter
--- OUTSIDE RECORDS SUMMARY | 2025-02-23 08:40 | XMS_ITS | Encounter Summary ---
Author Organization [employer] Address [address] [facility] 7t [place] [address] Care Team Providers Care Behavioral Sciences Instructor Name Role Phone Gerard Marcelo MD Primary Care Provider Reason for Visit * Reason Onset Date Comments appt 11/04/2023 Encounter Details Date Type Department Care Team ([facility] st Contact Info) Description 11/04/2023 Telephone C [facility] [address] [place] [address] Hasmukh Horowitz, DMD [address] [place], [place] [phone] appt Social History Tobacco Use Types Packs/Day [...] documented in this encounter Plan of Treatment Not on file documented as of this encounter Visit Diagnoses Not on filedocumented in this encounter Additional Health Concerns Assessment Noted Time PHQ-9 Depression Total Score: 0 12/07/19 23 2:15 PM EDT documented as of this encounter Care Teams Behavioral Sciences Instructor Relationship Specialty Start Date End Date Gerard Marcelo MD [address] [place] [address] PCP - General Internal Medicine 04/30/13 documented as of this encounter
--- OUTSIDE RECORDS SUMMARY | 2025-02-23 08:40 | XMS_ITS | Encounter Summary ---
Author Organization [employer] Address [address] [facility] 7t [place] [address] Care Team Providers Care Nursing Agency Manager Name Role Phone Gerard Marcelo MD Primary Care Provider [phone] Encounter Details Date Type Department Care Team (Latest Contact Info) Description 07/08/2018 Abstract [facility] CONVERSIONS Dental, Provider, DDS Social [...] on filedocumented in this encounter Care Teams Nursing Agency Manager Relationship Specialty Start Date End Date Gerard Marcelo MD [address] [place] [address] PCP - General Internal Medicine 04/30/13 documented as of this encounter
--- OUTSIDE RECORDS SUMMARY | 2025-02-23 08:40 | XMS_ITS | Clinical Summary ---
Author Organization [employer] Address [address] [facility] [address] [place] [address] Care Team Providers Care Janitorial Services Supervisor Name Role Phone Gerard Marcelo MD Primary Care Provider Allergies Active Allergy Reactions Criticality Noted Date Comments Amoxicillin Rash Low 06/09/2020 Medications * This document contains information received from the source organization and may not represent a complete record from that organization. aspirin-acetaminoph en-caffeine (Excedrin Migraine) 250-250-65 MG tablet Take 1 tablet by mouth every 6 (six) hours if needed for headaches. Active Sodium Fluoride 1.1 % creamIndications:De ntal caries,Dentin hypersensitivity [place] teeth for 2 minutes, morning and night. Spit, do not rinse. Do not eat or drink anything for 30 minutes following use. 112 g 3 025 Active triamcinolone (Kenalog) 0.1 % ointmentIndications [...] every 12 (twelve) hours. 60 tablet 11 5 12:49 PM EST 025 2025 Active levothyroxine (Synthroid) 25 MCG tabletIndications:O ther specified hypothyroidism Take 1 tablet (25 mcg) by mouth before breakfast. 30 tablet 11 025 2025 Active SUMAtriptan (Imitrex) 100 MG tabletIndications:C hronic migraine without aura without status migrainosus, not intractable Take 1 tablet (100 mg) by mouth 1 (one) time if needed for migraine for up to 1 dose. 9 tablet 3 025 Active phentermine 8 MG tabletIndications:C lass 1 obesity due to excess calories without serious comorbidity with body mass index (BMI) of 33.0 to 33.9 in adult Take 1 tablet (8 mg) by mouth Once per day. 28 tablet 025 Active propranolol LA (Inderal LA) 80 MG 24 hr capsuleIndications: Chronic migraine without aura without status migrainosus, not intractable TAKE ONE CAPSULE EVERY NIGHT AT BEDTIME 90 capsule 3 5 12:49 PM EST 025 Active propranolol XL (Innopran XL) 80 MG 24 hr capsuleIndications: Chronic migraine without aura without status migrainosus, not intractable Take 1 capsule (80 mg) by mouth at bedtime. 30 capsule 3 025 2024 Discontinued Active Problems Problem Noted Date Diagnosed Date Current severe episode of ma ladonna depressive disorder without psychotic features without prior episode ([facility]) 06/09/2024 JUAN C (generalized anxiety disorder) 06/09/2024 Migraine 06/19/2011 Obesity 06/19/2011 Encounters Date Type Department Care Team Description 02/17/2025 Refill [facility] [address] [place] [address] Gerard Marcelo MD Chronic migraine without aura without status migrainosus, not intractable 01/22/2025 Telephone [facility] [address] [place] [address] Gerard Marcelo MD 01/18/2025 Travel 12/01/2024 Refill [facility] [address] [place] [address] Gerard Marcelo MD Class 1 obesity due to excess calories without serious comorbidity with body mass index (BMI) of 33.0 to 33.9 in adult 11/24/2024 Results Follow-Up [facility] [address] [place] [address] Veronica Manriquez, SRIKANTH TSH W/Reflex to FT4, Hepatic Function Panel, Thyroid Peroxidase Antibodies 11/23/2024 2:15 PM EDT Office Visit [facility] [address] [place] [address] Gerard Marcelo MD Hypercholesterolemia (Primary Dx); Class 1 obesity due to excess calories without serious comorbidity with body mass index (BMI) of 33.0 to 33.9 in adult; Current severe episode of major depressive disorder without psychotic features without prior episode ([facility]); Elevated blood pressure reading 11/23/2024 Orders Only [facility] [address] [place] [address] Gerard Marcelo MD Chronic migraine without aura without status migrainosus, not intractable (Primary Dx); Elevated TSH 11/23/2024 Orders Only [facility] [address] [place] [address] Gerard Marcelo MD Other specified hypothyroidism (Primary Dx) 11/23/2024 Orders Only [facility] [address] [place] [address] Gerard Marcelo MD 11/23/2024 Travel from Last 3 Months Immunizations Immunization Administration [...] 11/23/2024 2:46 PM EDT Plan of Treatment Health Maintenance Due Date Last Done Comments Family Planning (PISQ) 12/16/2003 HPV Vaccines (1 - 3-dose series) 12/16/2003 Dental X-Ray: Full Mouth 08/06/2023 021, 08/04/2020, 07/15/2015 Dental Prophylaxis 09/26/2024 03/27/2024, 0 05/02/2023, 06/08/2021, Additional history exists Dental Oral Exam 10/05/2024 04/06/2024, 04/2023, 06/08/2021, Additional history exists Hepatitis B Vaccines (2 of 3 - 19+ 3-dose series) 10/08/2024 09/10/2024 COVID-19 Vaccine ( - season) 2024 07/13/2021, 01/26/2021, 01/05/2021 Influenza Vaccine (#1) 2024 , 12/06/2022, 12/27/2021, [...] Date/Time Associated Diagnosis Comments T4, FREE Routine 11/23/2024 4:03 PM EDT HEPATIC FUNCTION PANEL Routine 11/23/2024 4:03 PM EDT Transaminitis Elevated TSH TSH W/REFLEX TO FT4 Routine 11/23/2024 4 :03 PM EDT Transaminitis Elevated TSH THYROID PEROXIDASE ANTIBODIES Routine 11/23/2024 4:03 PM EDT Transaminitis Elevated TSH LIPID PANEL, STANDARD Routine 09/10/2024 12:00 AM [...] Results * (ABNORMAL) TSH W/Reflex to FT4 (11/23/2024 4:03 PM EDT) TSH reflex Free T4 5.73(H) 0.32 - 4.0 uIU/mL [facility] Blood Venous blood specimen / Unknown 11/23/2024 4:03 PM EDT 11/23/2024 5:21 PM EDT us Gerard Marcelo MD LAB BLOOD ORDERABLES Final Result Performing Organization Address [facility]/ZIP Co de Phone Number [facility] [address] [place] [address] [phone] * (ABNORMAL) Thyroid Peroxidase Antibodies (11/23/2024 4:03 PM EDT) Thyroid Peroxidase Antibodies >900(A) <9 IU/mL [facility] Comment:THIS TEST WAS PERFOR MED AT:[facility] [place] [phone] AVILES MD Blood Venous blood specimen / Unknown 11/23/2024 4:03 PM EDT 11/23/2024 5:21 PM EDT us Gerard Marcelo MD LAB BLOOD ORDERABLES Final Result Performing Organization Address City/[facility]/ZIP Co de Phone Number [facility] [address] [place] [address] [phone] * (ABNORMAL) T4, Free (11/23/2024 4:03 PM EDT) Free T4 (Free Thyroxine) 0.70(L) 0.71 - 1.85 ng/dL [facility] 11/23/2024 4:03 PM EDT 11/23/2024 5:21 PM EDT us Gerard Marcelo MD LAB BLOOD ORDERABLES Final Result Performing Organization Address [facility] Co de Phone Number [facility] [address] [place] [phone] * Hepatic Function Panel (11/23/2024 4:03 PM EDT) Bilirubin, Total 0.5 0.0 - 1.0 mg/dL [facility] Bilirubin, Direct 0.2 0.0 - 0.5 mg/dL [facility] Aspartate Amino Transferase 17 5 - 31 U/L [facility] Alanine Aminotransferase 12 0 - 31 U/L [facility] Total Protein 7.1 6.5 - 8.0 g/dL [facility] Albumin Level 4.1 3.5 - 5.0 g/dL [facility] Alkaline Phosphatase 94 39 - 117 U/L [facility] Blood Venous blood specimen / Unknown 11/23/2024 4:03 PM EDT 11/23/2024 5:21 PM EDT us Gerard Marcelo MD LAB BLOOD ORDERABLES Final Result Performing Organization Address [facility] de Phone Number [facility] [address] [place] [phone] * (ABNORMAL) Lipid Panel, Standard (09/10/2024 12:00 AM EDT) Triglycerides 160(H) <150 mg/dL [facility] Comment:Slight Lipemia.Bravo able Triglyceride: less than 150 mg/dLBorderline High Triglyceride 150-199 mg/dLHigh Triglyceride: 200-499 mg/dLVery High Triglyceride: greater than or equal to 5OO mg/dL Cholesterol 226(H) <200 mg/dL [facility] Comment:Desirable Cholestero l: less than 200 mg/dLBorderline High Cholesterol: 200-239 mg/dLHigh Cholesterol: greater than 239 mg/dL LDL Cholesterol Calculated 139(H) <100 mg/dL [facility] Comment:Desirable LDL: less than 100 mg/dLNear Optimal/Above Optimal LDL: 110- 129 mg/dLBorderline High LDL: 130-159 mg/dLHigh LDL: 160-189 mg/dLVery High LDL: greater than or equal to 190 mg/dL HDL Cholesterol 55 >40 mg/dL [facility] Comment:Desirable HDL: great er than 40 mg/dL Note: This HDL assay may give artificially low results in patients with liver disease. Blood Venous blood specimen / Unknown 09/10/2024 09/10/2024 Gerard Marcelo MD LAB BLOOD ORDERABLES Final Result Performing Organization Address [facility] Co de Phone Number [facility] [address] [place] [phone] * Hepatitis C Antibody with Reflex to HCV, RNA, Quantitative, Real-Time PCR (12/06/2022 2:42 PM EDT) Pathologist [facility] Hepatitis C Antibody Nonreactive Nonreactive [facility] Comment:Antibodies to HCV no t detected; does not exclude early acuteHCV infection. Blood Venous blood specimen / Unknown 12/06/2022 2:42 PM EDT 12/06/2022 5:14 PM EDT us Gerard Marcelo MD LAB BLOOD ORDERABLES Final Result Performing Organization Address [facility] Co de Phone Number [facility] [address] [place] [phone] * HPV E6/E7 RFLX ADDIS 16 18/45 (12/26/2021 2:43 PM EDT) HPV mRNA E6/E7 rflx Not Detected Not Detected [facility] Comment: Methodology: [employer]-Mediated Amplification This assay detects E6/E7 viral messenger RNA (mRNA) from 14 high-risk HPV types (16,18,31,33,35,39,45,51,52,56,58,59,66,68). Cervical sources are required for HPV testing. If a vaginal source from a patient who has had a total hysterectomy with removal of cervix was submitted, please contact the testing laboratory for alternative testing options. For additional information, please refer to http://education.InnSania/faq/MBV573b8 (This link if provided for information/ educational purposes only.) THIS TEST WAS PERFORMED AT: [employer] [address] [place] [address] FLOOR,[place] [phone] SARI AVILES MD 12/26/2021 2:43 PM EDT [place] HISTORICAL/NON ORDERABLE LABS Fi nal Result Performing Organization Address City/[facility] Co de Phone Number [facility] * HIV AB/AG (03/01/2021 9:17 AM EST) [facility] HIV AB/AG Nonreactive Nonreactive [facility] Comment: HIV-1 p24 Ag and/or [...] of detection of this assay. The [employer] HIV Ag/Ab Combo assay result and supplemental assay results should be interpreted in conjunction with the patient's clinical presentation, history and other laboratory results. If the results are inconsistent with clinical evidence, additional testing is suggested to confirm the result. Hepatitis C Antibody Nonreactive Nonreactive [facility] Comment: Antibodies to HCV not detected; does not exclude early acute HCV infection. Hepatitis B Core Antibody Nonreactive Nonreactive [facility] 03/01/2021 9:17 AM EST [facility] [place] HISTORICAL/NON ORDERABLE LABS Fi nal Result Performing Organization Address City/[facility]/ZIP Co de Phone Number [facility] [address] [place] [address], from Last 3 Months or Most Recently Relevant to Health Maintenance [facility] C[facility] MEDICAID STAND ADULT Care Teams Janitorial Services Supervisor Relationship Specialty Start Date End Date Gerard Marcelo MD [address] [place] [address] TIMOTEO Mckeon [phone] PCP - General Internal Medicine 04/30/13
[2025-02-23 08:41] VITALS: BP 120/72; BMI 33.3
== END 2025-02-23 09:21 | disposition home or self-care (01) ==
LOC: HO.HWSM 08:24
PROVIDERS: PCP Internal Medicine; Visit Provider Advanced Practice Midwife
DX: Z01.419 Encounter for gynecological examination (general) (routine) without abnormal findings (principal); Z97.5 Presence of (intrauterine) contraceptive device; Z12.39 Encounter for other screening for malignant neoplasm of breast
CPT/HCPCS: 99395

== ENCOUNTER → 2025-02-23 08:24 | Outpatient (BNVA) | payer MEDICAID, SELFPAY | PROVIDERS: PCP Internal Medicine; Visit Provider Advanced Practice Midwife | DX: Z01.419 Encounter for gynecological examination (general) (routine) without abnormal findings (principal); Z97.5 Presence of (intrauterine) contraceptive device; Z12.39 Encounter for other screening for malignant neoplasm of breast; E66.3 Overweight; Z71.3 Dietary counseling and surveillance; Z68.33 Body mass index [BMI] 33.0-33.9, adult; R10.20 Pelvic and perineal pain unspecified side; N64.4 Mastodynia; Z80.3 Family history of malignant neoplasm of breast | CPT/HCPCS: 99395 ==